=== PATIENT | female | born 1935 | race Caucasian/White ===

== ENCOUNTER 2018-03-05 06:56 | Inpatient (IN) | payer MEDICARE ==
[~2018-03-05] VITALS: Ht 165.1 cm; Wt 58.8 kg
[~2018-03-05 06:56] MED LIST: AMLODIPINE PO; ASPIR 8181 MG PO; B12; BENADRYL25 M1 PO; CALCIUM W VIT D PO; CHLORTABS PO; FISH OIL 1,2001 EAC1 PO; IBANDRONATE SO150 MG PO; LEVOTHYROXINE50 MCG PO; NIACIN500 M1 PO; NORCO 7.5-3251 EACH PO; OMEPRAZOLE40 MG PO; SUCRALFATE1 GM PO; TYLENOL PO
--- OUTSIDE RECORDS SUMMARY | 2018-03-05 06:59 | XMS REPORT ---
Author Author [facility] Address Unknown Phone Unavailable Care Team Providers Care Medical Director Occupational Health Name Role Phone ELSA CERVANTES Unavailable Unavailable Payers Payer Name Policy Type Policy Number Effective Date Expiration Date Problems This patient has no known problems. Allergies, Adverse Reactions, Alerts Allergy Name Allergy Type Status Severity Reaction(s) Onset Date Inactive Date Treating Clinician Comments Penicillins DA Active 2013-09-25 00:00:00 Fiwuapl-Hsj-Rso Reductase Inhibitor DA Active 2013-09-25 00:00:00 Medications This patient has no known medications. Results Test Description Test Time Test Comments Text Results Atomic Results Result Comments MRI BRAIN WO 2017-11-23 13:04:00 [facility] [address] [address] Patient Name: GERARDO MACIAS MR #: [id number] : 1935 Age/Sex: 82/F Req #: [id number] Adm Physician: ELSA CERVANTES MD Ordered by: RAJIV CORNELL M.D. Report #: [id number] Location: MED/SURG3 Room/Bed: [facility] Procedure: [id number] MRI/MRI BRAIN WO Exam Date: Exam Time: REPORT STATUS: Signed EXAMINATION: MRI of the brain without contrast. HISTORY: Weakness, acute stroke, shortness of breath COMPARISON: Head CT on 11/21/2017 TECHNIQUE: Sagittal T2; axial DWI, T2, FLAIR, T1-IR, T2 gradient echo; coronal FLAIR. IMAGE QUALITY: Motion artifact limits evaluation of the sagittal T2. FINDINGS: Parenchyma: 1. Acute cortical infarct in the right superior parietal lobule along the right MCA distribution. 2. Chronic right lateral occipital cortical infarct in a watershed cortical distribution in between the MCA and TRAINING AND DEVELOPMENT PROFESSIONAL. 3. Moderate confluent periventricular and xiong radiata white matter T2 hyperintense foci, most likely nonspecific chronic microvascular ischemic changes. 4. No mass, hemorrhage, acute or chronic infarcts. Skull: Unremarkable. Vessels: Expected flow voids present in the major arteries and dural sinuses. Extra-axial spaces: No abnormal signal intensity or mass effect. Brain volume: Within normal limits for age. Ventricles: No hydrocephalus or displacement. Foramen magnum: Unremarkable. Sella: Unremarkable. Paranasal / mastoid sinuses: No significant inflammatory disease. IMPRESSION: 1. Acute ischemic cortical infarct in the right parietal lobe. 2. Chronic right occipital cortical infarct. 3. Moderate chronic microvascular ischemic changes. Signed by: Dr. Kashif Rios M.D. on 11/23/2017 1:09 PM Dictated By: KASHIF RIOS MD 130 Transcribed By: HODA on 11/23/17 1308 COPY TO: RAJIV CORNELL M.D. MODIFIED BA. SWALLOW 2017-11-22 12:24:00 [address] [address] Patient Name: GERARDO MACIAS MR #: [id number] : 1935 Age/Sex: 82/F Req #: [id number] Adm Physician: ELSA CERVANTES MD Ordered by: ANNETTE MCNEIL MD Report #: [id number] Location: MED/SURG3 Room/Bed: 297-1 Procedure: DX/MODIFIED BA. SWALLOW Exam Date: 11/22/17 Exam Time: 1000 REPORT STATUS: Signed PROCEDURE: X-RAY MODIFIED BARIUM SWALLOW COMPARISON: None. INDICATIONS: Not provided. DISCUSSION: Fluoroscopic examination was performed in conjunction with speech pathology, during swallowing of a variety of thin and thick liquid consistencies. CONCLUSION: Laryngeal penetration was noted with thin liquids. No meredith aspiration.. Please see the report from speech pathology for complete details. Dictated by: Milagros Woodard M.D. on 11/22/2017 at 12:24 Electronically approved by: Milagros Woodard M.D. on 11/22/2017 at 12:24 Dictated By: MILAGROS WOODARD MD 1224 Transcribed By: LISBETH on 11/22/17 1224 COPY TO: ANNETTE MCNEIL MD CTA NECK 2017-11-22 00:52:00 [address] [address] Patient Name: GERARDO MACIAS MR #: [id number] : 1935 Age/Sex: 82/F Req #: [id number] Adm Physician: ELSA CERVANTES MD Ordered by: LEXX MYERS MODELING AND SIMULATION ANALYST Report #: [id number] Location: MED/SURG3 Room/Bed: 297-1 Procedure: [id number] CT/CTA NECK Exam Date: 11/21/17 Exam Time: 2330 REPORT STATUS: Signed ADDENDUM #1 Volume rendered 3-D images were also provided for interpretation. Signed by: Dr. Milagros Rodriguez M.D. on 12/13/2017 4:58 PM ORIGINAL REPORT Exams: Neck and head CTA is without IV contrast History: Ischemic eye disease Comparison studies:None Technique: Precontrast images were obtained through the vertex through the skull base. Axial images were then obtained from the thoracic inlet to the vertex following the administration of IV contrast. Multiplanar reformatted images were graded from the axial data. Intravenous contrast: 100 cc of Omnipaque 300. Findings: Head CT: Scalp: No abnormalities. Bones: No fractures, blastic or lytic lesions. Brain sulci: Appropriate for age. Ventricles: Mild compensatory dilatation. No hydrocephalus. Extra-axial spaces: No masses, no fluid collection. Parenchyma: Age indeterminate nonhemorrhagic cortical vascular insult centered along the right postcentral gyrus in the right parietal lobe in the distal right MCA territory. Chronic right parieto-occipital insult with encephalomalacia and gliosis in the right TRAINING AND DEVELOPMENT PROFESSIONAL-MCA cortical border zone. Scattered and mildly confluent hypodensities throughout the supratentorial white matter are nonspecific but most compatible with chronic microvascular ischemic changes. Few scattered leptomeningeal and juxtacortical catheter gauge and without mass effect or edema may be sequela previous infection/inflammation. Sellar/suprasellar region: No abnormalities. Craniocervical junction: Patent foramen magnum. No Chiari one malformation. Incidental findings: Bilateral intraocular lens replacements. Atherosclerotic calcifications in the carotid siphons.. Cervical CTA: Aortic arch: Moderate scattered hard and calcified plaque. Left subclavian artery. Severe atherosclerosis with scattered hard plaque which result in drain degrees of mild to moderate multisegmental stenosis. Right brachiocephalic trunk: Severe atherosclerosis with scattered hard and soft plaque which result in severe stenosis just just beyond the origin. Right subclavian artery: Severe atherosclerosis with severe stenosis at the origin and mild multisegmental stenosis distally. Right carotid artery: Severe flow-limiting stenosis at the right common carotid artery origin due to calcified and hard plaque. Moderate scattered soft plaque and scattered hard plaque throughout the asymmetrically narrowed right common carotid artery. Moderate calcified and soft plaque at the bifurcation and carotid bulb with mild stenosis at the right carotid bulb due to hard plaque. Right internal carotid artery is poorly opacified distal to the carotid bulb and is severely narrowed/near totally occluded with "string sign" in its distal segment. Left carotid artery: Calcified plaque at the origin and scattered throughout the common carotid artery without significant stenosis. Calcified plaque and mild soft plaque at the carotid bulb without significant stenosis. Mild scattered nonstenotic calcified plaque in the proximal left ICA which is otherwise patent distally to the skull base. Vertebral arteries: Calcified plaque at the origins bilaterally without significant stenosis on the left and mild to moderate stenosis at the right vertebral artery origin. Calcified plaque in the V1 segments result in mild stenosis bilaterally. Intracranial CTA: Right internal carotid artery: Occluded from the skull base to the right paraophthalmic segment with reconstituted flow in the distal right paraophthalmic segment. Scattered calcified atherosclerosis throughout the right cavernous and paraophthalmic segments. There is a central filling defect consistent with thrombus which extends from the right paraophthalmic, into the right supraclinoid ICA segment and into the right M1 MCA. A 3 mm superiorly projecting hyperdensity in the right paraophthalmic ICA segment may represent small aneurysm. Left internal carotid artery: Patent with mild nonstenotic calcified plaque in the cavernous and paraophthalmic segment. Middle cerebral arteries: Patent bilateral M1 and proximal M2 segments. Central filling defect within the right M1 MCA consistent with nonocclusive thrombus. Anterior cerebral arteries: Patent, no abnormalities in the A1 and A2 segment s. Vertebral arteries: Patent, no abnormalities. Basilar artery: Patent, no abnormalities. Posterior cerebral arteries: Patent, no abnormalities. Anatomical variants: Acom: Patent. Pcoms: Patent bilaterally. Vertebral arteries: Codominant. Additional findings: * Small bilateral pleural effusions. Nonspecific left upper lobe groundglass density may be infectious or neoplastic in etiology. There is a 1.2 cm subpleural nodular scarring at the left lung apex and 4 mm nodule at the right lung apex. Follow-up chest CT is recommended. * Minimal retrolisthesis of C4 on C5. Multilevel degenerative changes in the cervical spine with multilevel disc degeneration, at least mild canal stenosis at C5-C6 and C6-C7 due to disc osteophyte complexes and varying degrees of multilevel moderate to severe foraminal stenosis due to uncovertebral and facet arthrosis. * Chronic- appearing superior T4 endplate compression fracture, approximately 20% height loss. No retropulsion. IMPRESSION: Head CT: 1. Age-indeterminate nonhemorrhagic right parietal ischemic insult along the right postcentral gyrus. 2. Chronic right parieto-occipital insult. 3. Moderate chronic microvascular ischemic changes. 4. Mild generalized volume loss. Cervical CTA: 1. Severe atherosclerosis with calcified plaques as described. 2. Severe flow-limiting stenosis at the origin of the right common carotid artery which is diffusely narrowed. Severe narrowing/near total occlusion of the the distal right internal carotid artery which is occluded at the skull base. Reconstituted flow within the right paraophthalmic ICA which contains thrombus which extends into the right M1 MCA segment. 3. Patent left carotid artery. No (0%) stenosis at the left cervical carotid bulb. 4. Patent vertebral arteries with mild/moderate stenosis at the right vertebral artery origin. 5. Severe stenosis in the right brachiocephalic trunk, right subclav krzysztof artery origin and moderate stenosis in the left subclavian artery. 6. Additional findings as described. Intracranial CTA: 1. 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 2. 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 3. Nonstenotic calcified atherosclerosis in the left carotid siphon. Findings discussed with Vita Faust RN at 1:11 AM on 11/22/2017. Signed by: Dr. Milagros Rodriguez M.D. on 11/22/2017 1:50 AM Dictated By: MILAGROS RODRIGUEZ MD [id number] Transcribed By: HODA on 11/22/17 0150 COPY TO: LEXX MYERS NP CTA BRAIN 2017-11-22 00:52:00 [address] [address] Patient Name: GERARDO MACIAS MR #: [id number] : 1935 Age/Sex: 82/F [id number] Req #: [id number] Adm Physician: ELSA CERVANTES MD Ordered by: LEXX MYERS NP Report #: [id number] [facility]: [facility] Room/Bed: [facility] Procedure: [id number] CT/CTA BRAIN Exam Date: 11/21/17 Exam Time: 2330 REPORT STATUS: Signed ADDENDUM #1 Volume rendered 3-D images were also provided for interpretation. Signed by: Dr. Milagros Rodriguez M.D. on 12/13/2017 4:58 PM ORIGINAL REPORT Exams: Neck and head CTA is without IV contrast History: Ischemic eye disease Comparison studies:None Technique: Precontrast images were obtained through the vertex through the skull base. Axial images were then obtained from the thoracic inlet to the vertex following the administration of IV contrast. Multiplanar reformatted images were graded from the axial data. Intravenous contrast: 100 cc of Omnipaque 300. Findings: Head CT: Scalp: No abnormalities. Bones: No fractures, blastic or lytic lesions. Brain sulci: Appropriate for age. Ventricles: Mild compensatory dilatation. No hydrocephalus. Extra-axial spaces: No masses, no fluid collection. Parenchyma: Age indeterminate nonhemorrhagic cortical vascular insult centered along the right postcentral gyrus in the right parietal lobe in the distal right MCA territory. Chronic right parieto-occipital insult with encephalomalacia and gliosis in the right TRAINING AND DEVELOPMENT PROFESSIONAL-MCA cortical border zone. Scattered and mildly confluent hypodensities throughout the supratentorial white matter are nonspecific but most compatible with chronic microvascular ischemic changes. Few scattered leptomeningeal and juxtacortical catheter gauge and without mass effect or edema may be sequela previous infection/inflammation. Sellar/suprasellar region: No abnormalities. Craniocervical junction: Patent foramen magnum. No Chiari one malformation. Incidental findings: Bilateral intraocular lens replacements. Atherosclerotic calcifications in the carotid siphons.. Cervical CTA: Aortic arch: Moderate scattered hard and calcified plaque. Left subclavian artery. Severe atherosclerosis with scattered hard plaque which result in drain degrees of mild to moderate multisegmental stenosis. Right brachiocephalic trunk: Severe atherosclerosis with scattered hard and soft plaque which result in severe stenosis just just beyond the origin. Right subclavian artery: Severe atherosclerosis with severe stenosis at the origin and mild multisegmental stenosis distally. Right carotid artery: Severe flow-limiting stenosis at the right common carotid artery origin due to calcified and hard plaque. Moderate scattered soft plaque and scattered hard plaque throughout the asymmetrically narrowed right common carotid artery. Moderate calcified and soft plaque at the bifurcation and carotid bulb with mild stenosis at the right carotid bulb due to hard plaque. Right internal carotid artery is poorly opacified distal to the carotid bulb and is severely narrowed/near totally occluded with "string sign" in its distal segment. Left carotid artery: Calcified plaque at the origin and scattered throughout the common carotid artery without significant stenosis. Calcified plaque and mild soft plaque at the carotid bulb without significant stenosis. Mild scattered nonstenotic calcified plaque in the proximal left ICA which is otherwise patent distally to the skull base. Vertebral arteries: Calcified plaque at the origins bilaterally without significant stenosis on the left and mild to moderate stenosis at the right vertebral artery origin. Calcified plaque in the V1 segments result in mild stenosis bilaterally. Intracranial CTA: Right internal carotid artery: Occluded from the skull base to the right paraophthalmic segment with reconstituted flow in the distal right paraophthalmic segment. Scattered calcified atherosclerosis throughout the right cavernous and paraophthalmic segments. There is a central filling defect consistent with thrombus which extends from the right paraophthalmic, into the right supraclinoid ICA segment and into the right M1 MCA. A 3 mm superiorly projecting hyperdensity in the right paraophthalmic ICA segment may represent small aneurysm. Left internal carotid artery: Patent with mild nonstenotic calcified plaque in the cavernous and paraophthalmic segment. Middle cerebral arteries: Patent bilateral M1 and proximal M2 segments. Central filling defect within the right M1 MCA consistent with nonocclusive thrombus. Anterior cerebral arteries: Patent, no abnormalities in the A1 and A2 segmen ts. Vertebral arteries: Patent, no abnormalities. Basilar artery: Patent, no abnormalities. Posterior cerebral arteries: Patent, no abnormalities. Anatomical variants: Acom: Patent. Pcoms: Patent bilaterally. Vertebral arteries: Codominant. Additional findings: * Small bilateral pleural effusions. Nonspecific left upper lobe groundglass density may be infectious or neoplastic in etiology. There is a 1.2 cm subpleural nodular scarring at the left lung apex and 4 mm nodule at the right lung apex. Follow-up chest CT is recommended. * Minimal retrolisthesis of C4 on C5. Multilevel degenerative changes in the cervical spine with multilevel disc degeneration, at least mild canal stenosis at C5-C6 and C6-C7 due to disc osteophyte complexes and varying degrees of multilevel moderate to severe foraminal stenosis due to uncovertebral and facet arthrosis. * Chronic- appearing superior T4 endplate compression fracture, approximately 20% height loss. No retropulsion. IMPRESSION: Head CT: 1. Age-indeterminate nonhemorrhagic right parietal ischemic insult along the right postcentral gyrus. 2. Chronic right parieto-occipital insult. 3. Moderate chronic microvascular ischemic changes. 4. Mild generalized volume loss. Cervical CTA: 1. Severe atherosclerosis with calcified plaques as described. 2. Severe flow-limiting stenosis at the origin of the right common carotid artery which is diffusely narrowed. Severe narrowing/near total occlusion of the the distal right internal carotid artery which is occluded at the skull base. Reconstituted flow within the right paraophthalmic ICA which contains thrombus which extends into the right M1 MCA segment. 3. Patent left carotid artery. No (0%) stenosis at the left cervical carotid bulb. 4. Patent vertebral arteries with mild/moderate stenosis at the right vertebral artery origin. 5. Severe stenosis in the right brachiocephalic trunk, right subcla vian artery origin and moderate stenosis in the left subclavian artery. 6. Additional findings as described. Intracranial CTA: 1. 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 2. 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 3. Nonstenotic calcified atherosclerosis in the left carotid siphon. Findings discussed with Vita Faust RN at 1:11 AM on 11/22/2017. Signed by: Dr. Milagros Rodriguez M.D. on 11/22/2017 1:50 AM Dictated By: MILAGROS RODRIGUEZ MD 1658 Transcribed By: HODA on 11/22/17 0150 COPY TO: LEXX MYERS NP CHEST SINGLE (PORTABLE) 2017-11-21 06:34:[address] [address] Patient Name: GERARDO MACIAS MR #: [id number] : 1935 Age/Sex: 82/F Req #: [id number] Adm Physician: ELSA CERVANTES MD Ordered by: LEXX MYERS MODELING AND SIMULATION ANALYST Report #: [id number] Location: [facility]/SURG3 Room/Bed: [facility] Procedure: [id number] DX/CHEST SINGLE (PORTABLE) Exam Date: 11/21/17 Exam Time: 0555 REPORT STATUS: Signed EXAM: CHEST SINGLE (PORTABLE), AP 1 view INDICATION: Pulmonary edema COMPARISON: AP view of the chest November 11, 2017 FINDINGS: LINES/TUBES: None LUNGS: Bibasilar atelectasis and edema. PLEURA: Small bilateral pleural effusions HEART AND MEDIASTINUM: Normal size and contour. BONES AND SOFT TISSUES: No acute findings. IMPRESSION: No significant interval change. Signed by: Dr. Kevyn Martin M.D. on 11/21/2017 6:35 AM Dictated By: KEVYN MARTIN MD Transcribed By: HODA on 11/21/17 0635 COPY TO: LEXX MYERS NP CT CHEST W 2017-11-19 10:51:00 [address], [place] [address] Patient Name: GERARDO MACIAS MR #: [id number] : 1935 Age/Sex: 82/F Req #: [id number] [facility] Physician: Ordered by: BELLA REYNOSO MD Report #: [id number] Location: ER Room/Bed: Procedure: [id number] CT/CT CHEST W Exam Date: Exam Time: REPORT STATUS: Signed EXAM: CT Chest WITH contrast INDICATION: Shortness of breath, evaluate for pulmonary embolism COMPARISON: Chest radiograph 11/19/2017 TECHNIQUE: Spiral CT images of the chest were performed from the lung apices through the level of the adrenal glands after the IV contrast administration. Thin section reconstructions were obtained with special concentration on the pulmonary arteries. IV CONTRAST: 100 mL of Isovue-370 ORAL CONTRAST: None COMPLICATIONS: None RADIATION DOSE: Total DLP: 389.8 mGy*cm Estimated effective dose: (DLP x 0.015 x size factor) mSv CTDIvol has been reviewed. It is below the limits set by the Radiation Protocol Committee (RPC). FINDINGS: LINES/ TUBES: None. PULMONARY ARTERIES: No filling defects are identified in the main, right or left pulmonary arteries to their segmental and subsegmental levels, to suggest pulmonary embolism. The main pulmonary artery is normal in size, measuring 2.6 cm in diameter. LUNGS AND AIRWAYS: 1.2 cm partsolid nodule in the left upper lobe on series 3, image 22 with a solid component measuring 4 mm. Diffuse bilateral interstitial edema. Subsegmental atelectasis in both lower lobes. Bilateral central peribronchial wall thickening with associated mild bronchiectasis. Tracheomegaly. PLEURA: Bilateral low-attenuation pleural effusions, small on the right and [id number] on the left. No pneumothorax. HEART AND MEDIASTINUM: The thyroid gland is normal. No mediastinal, hilar or axillary lymphadenopathy. The heart is normal in size. Trace pericardial effusion. Severe mitral annular calcification. The thoracic aorta normal in caliber and associated with moderate diffuse atherosclerotic calcifications. Severe calcifications of the proximal arch branch vessels. UPPER ABDOMEN: Unremarkable. BONES: Diffuse bone demineralization with multilevel degenerative changes of the thoracic spine. SOFT TISSUES: Unremarkable. IMPRESSION: 1. No pulmonary embolism. Normal size of the main pulmonary artery. No RV strain. 2. Diffuse bilateral interstitial edema with associated bilateral pleural effusions and subsegmental atelectasis in both lung bases. 3. Left upper lobe 1.2 cm partsolid nodule may relate to the interstitial edema but recommend follow up in 3 months to demonstrate stability. Signed by: Dr. Re Winter M.D. on 11/19/2017 11:03 AM Dictated By: RE WINTER MD 1103 Transcribed By: HODA on 11/19/17 1103 COPY TO: BELLA REYNOSO MD CHEST SINGLE (PORTABLE) 2017-11-19 09:04:00 [address] [place] [address] Patient Name: GERARDO MACIAS MR #: [id number] : 1935 Age/Sex: 82/F Req #: [id number] Adm Physician: Ordered by: BELLA REYNOSO MD Report #: [id number] Location: ER Room/Bed: Procedure: [id number] DX/CHEST SINGLE (PORTABLE) Exam Date: 11/19/17 Exam Time: 0835 REPORT STATUS: Signed EXAM: Single AP view of the chest (Portable). COMPARISON: Chest radiograph 03/20/2014 INDICATION: FINDINGS: Single portable AP view of the chest. The visualized bones and soft tissues, cardiac silhouette lungs, pleura appear unchanged. IMPRESSION: 1. Lines/tubes: None 2. Bilateral interstitial edema with associated small pleural effusions. 3. Previously noted left hilar mass is not seen on this exam. Signed by: Dr. Re Winter M.D. on 11/19/2017 9:05 AM Dictated By: RE WINTER MD 4 Transcribed By: HODA on 11/19/17904 COPY TO: BELLA REYNOSO MD
[2018-03-05 08:02] LABS: BASOPHILS # (AUTO) 0.1 (0.0-0.1); BASOPHILS % 0.5 % (0.0-1.0); EOSINOPHILS # (AUTO) 0.3 (0.0-0.4); HEMATOCRIT 38.5 % (34.2-44.1); LYMPHOCYTES # (AUTO) 7.7 (1.0-3.2); LYMPHOCYTES % 50.5 % (18.0-39.1); MEAN CORPUSCULAR HEMOGLOBIN 26.7 pg (28-32); MEAN CORPUSCULAR HGB CONC 31.2 g/dL (31-35); MEAN CORPUSCULAR VOLUME 85.7 fL (81-99); MONOCYTES # (AUTO) 1.7 (0.2-0.8); MONOCYTES % 11.1 % (4.4-11.3); NEUTROPHILS # (AUTO) 5.4 (2.1-6.9); NEUTROPHILS % 35.5 % (38.7-80.0); PLATELET COUNT 142 x10e3/uL (140-360); RED BLOOD COUNT 4.49 x10e6/uL (3.6-5.1)
[2018-03-05 08:09] LABS: CLARITY,URINE HAZY (CLEAR); COLOR,URINE YELLOW (YELLOW); LEUKOCYTE ESTERASE ,URINE 2+ (NEGATIVE); NITRITE,URINE NEGATIVE (NEGATIVE); PROTEIN,URINE DIPSTICK NEGATIVE (NEGATIVE)
[2018-03-05 08:10] LABS: BACTERIA,URINE FEW /HPF; BILIRUBIN,URINE NEGATIVE (NEGATIVE); EPITHELIAL CELLS,URINE FEW /LPF; KETONES,URINE NEGATIVE (NEGATIVE); URINE UROBILINOGEN 0.2 mg/dL (0.2 - 1)
[2018-03-05 08:12] LABS: INR 0.91; PROTHROMBIN TIME 13.1 seconds (11.9-14.5)
[2018-03-05 08:13] LABS: PARTIAL THROMBOPLASTIN TIME 28.5 seconds (23.8-35.5)
[2018-03-05 08:20] LABS: ALANINE AMINOTRANSFERASE 11 IU/L (0-55); ALBUMIN 3.8 g/dL (3.5-5.0); ALBUMIN/GLOBULIN RATIO 1.3 (0.8-2.0); ALKALINE PHOSPHATASE 58 IU/L (40-150); ANION GAP 14.3 mmol/L (8-16); BLOOD UREA NITROGEN 16 mg/dL (7-26); BUN/CREATININE RATIO 22 (6-25); CALCIUM 9.5 mg/dL (8.4-10.2); CARBON DIOXIDE 27 mmol/L (22-29); CHLORIDE 101 mmol/L (98-107); CREATINE KINASE 31 IU/L (29-168); CREATININE, SERUM 0.73 mg/dL (0.57-1.11); EST GLOMERULAR FILTRATION RATE > 60 ML/MIN (60-); GLUCOSE 116 mg/dL (74-118); POTASSIUM 4.3 mmol/L (3.5-5.1); SODIUM 138 mmol/L (136-145)
[2018-03-05] MEDS ORDERED: SODIUM CHLORIDE 0.9% 1000ML 1,000 ML IV STA ×2 (08:49→10:34)
--- NOTE | 2018-03-05 08:50 | Diagnostic Imaging Report ---
EXAMINATION: CHEST SINGLE (PORTABLE) INDICATION: ^WEAK LEGS ^[id number] ^[id number] COMPARISON: 11/19/2017 FINDINGS: AP view Patient's chin obscures right apex. TUBES and LINES: None. LUNGS: Lungs are well inflated. Mild vascular congestion and interstitial edema. PLEURA: No visible pneumothorax. Small right pleural effusion. HEART AND MEDIASTINUM: The cardiomediastinal silhouette is unremarkable. Aorta is calcified and mildly tortuous. BONES AND SOFT TISSUES: No acute osseous lesion. Soft tissues are unremarkable. UPPER ABDOMEN: No free air under the diaphragm. IMPRESSION: Small right pleural effusion and mild interstitial edema. Signed by: Dr. José Miguel Vides MD on 03/05/2018 8:46 AM
--- NOTE | 2018-03-05 09:05 | Diagnostic Imaging Report ---
Exam: Head CT without contrast Indication: Generalized weakness, neck pain Comparison studies: Brain MRI 11/23/2017. Head and neck CTA 11/21/2017. Technique: Axial images were obtained from the skull base to the vertex. Coronal and sagittal images reconstructed from the axial data. Dose modulation, iterative reconstruction, and/or weight based adjustment of the mA/kV was utilized to reduce the radiation dose to as low as reasonably achievable. Intravenous contrast: None Findings: Scalp/skull: No abnormalities. Extra-axial spaces: No masses. No fluid collections. Brain sulci: Mildly prominent. Ventricles: Mild compensatory dilatation. No hydrocephalus. Parenchyma: Evolution of a right superior parietal lobule vascular insult, now chronic, which likely represents an external border zone phenomenon. Additional chronic vascular insult centered in the cuneus of the right occipital lobe. Confluent nonspecific hypodensity within the deep white matter. No hemorrhage or mass effect. Sellar/suprasellar region: No abnormalities. Craniocervical junction: Patent foramen magnum. No Chiari one malformation. Incidental findings: Atherosclerotic calcifications in the carotid siphons . Bilateral cataracts. Impression: 1. No acute abnormalities. 2. Evolution of a now chronic right parietal vascular insult. Chronic findings: Mild generalized volume loss. Moderate supratentorial white matter small vessel ischemic changes. Chronic vascular insult in the right lateral occipital lobe. A preliminary report was provided by Dr. Vega on 03/05/2018 9:05 AM. Signed by: Dr. Agustin Pradhan M.D. on 03/06/2018 5:14 PM
[2018-03-05] MEDS ORDERED: CLINDAMYCIN PHOS 900MG/ 50ML 50 ML IV ONE (09:30)
[2018-03-05] MEDS ORDERED: ONDANSETRON HCL INJ 2 MG/ML VIAL IV PRN (09:45)
[2018-03-05 10:48] LABS: BAND NEUTROPHILS % (MANUAL) 1 %; EOSINOPHILS % (MANUAL) 4 % (0-7); LYMPHOCYTES % (MANUAL) 46 % (19-48); MONOCYTES % (MANUAL) 2 % (3.4-9.0); NEUTROPHILS % (MANUAL) 46 % (40-74)
[2018-03-05 10:49] LABS: PLATELET ESTIMATE ADEQUATE; PLATELET MORPHOLOGY COMMENT NORMAL; RBC MORPHOLOGY COMMENT NORMAL
[2018-03-05] MEDS: CEFTRIAXONE SOD 1 GM VIAL IV SCH (12:00)
[2018-03-05] MEDS ORDERED: HYDROCODONE/APAP 5MG-325MG TAB PO ONE (12:00)
--- NOTE | 2018-03-05 12:30 | Diagnostic Imaging Report ---
EXAM: CT Chest WITH contrast 03/05/2018 11:01 AM INDICATION: ^PE PROTOCOL ^Y COMPARISON: Same the chest x-ray, chest CT dated 11/19/2017 TECHNIQUE: Chest was scanned utilizing a multidetector helical scanner from the lung apex through the level of the diaphragm after administration of IV contrast. Thin section reconstructions were obtained with special concentration on the pulmonary arteries. Coronal and sagittal reformations were obtained. Dose modulation, iterative reconstruction, and/or weight based adjustment of the mA/kV was utilized to reduce the radiation dose to as low as reasonably achievable. Pulmonary embolism protocol was performed. IV CONTRAST: 100 mL of Isovue 370 COMPLICATIONS: None RADIATION DOSE: Total DLP: 469.57 mGy*cm Estimated effective dose: (DLP x 0.014 x size factor) mSv CTDIvol has been reviewed. It is below the limits set by the Radiation Protocol Committee (RPC). FINDINGS: LINES/ TUBES: None. LUNGS AND AIRWAYS: No evidence of pulmonary embolism. Pulmonary vascular congestion and mild interstitial edema. 4 mm left upper lobe nodule (series 3, image 26). 6 mm cavitary left upper lobe nodule (series 3, image 35). Right upper lobe 6 mm nodules (3/38 and 56). 5 mm right upper lobe nodule (3/46). Unchanged 1.2 cm left apical consolidation (series 3, image 18). Airways are normal. PLEURA: Small bilateral pleural effusions. HEART AND MEDIASTINUM: The thyroid gland is normal. No mediastinal or hilar lymphadenopathy. Prominent bilateral axillary/subpectoralis lymph nodes. The heart is mildly enlarged. There is no pericardial effusion. Severe atherosclerotic calcification of aorta and coronary arteries. There are also aortic and mitral valve calcifications. UPPER ABDOMEN: Unremarkable. BONES: Generalized demineralization limits evaluation. There are degenerative changes in the thoracic spine. SOFT TISSUES: Unremarkable. IMPRESSION: 1. No evidence of pulmonary embolism. 2. Pulmonary vascular congestion, mild interstitial edema, and small bilateral pleural effusions. 3. Multiple bilateral lung nodules, stable when compared to prior CT. Recommend follow-up in 6-12 months to ensure stability. 4. Previously noted partsolid nodule within left upper lobe has been replaced by a 6 mm cavitary nodule. 5. Severe atherosclerotic calcification of aorta and coronary arteries. Signed by: Dr. José Miguel Vides MD on 03/05/2018 12:27 PM
[2018-03-05] MEDS ORDERED: LORAZEPAM INJ 2 MG/ML VIAL IV ONE (13:30)
[2018-03-05 13:56] LABS: ABG HCO3 28 mmol/L (23-28); ABG PCO2 48 mmHg (41-51); ABG PH 7.37 (7.31-7.41); ABG PO2 174 mmHg (80-105)
[2018-03-05] MEDS ORDERED: METHYLPREDNISOLONE SOD SUCC 40 MG/ML VIAL IV ONE (14:30)
[2018-03-05 15:40] VITALS: BP_SYST 107; BP_SYST 145; BP_DIAS 45; BP_DIAS 93
[2018-03-05 15:57] VITALS: BP 107/72
[2018-03-05] MEDS ORDERED: MELATONIN10 M1 PO (16:00)
[2018-03-05] MEDS ORDERED: MAGNESIUM400 MG (16:00)
[2018-03-05] MEDS ORDERED: PLAVIX75 MG PO (16:00)
[2018-03-05] MEDS ORDERED: ALBUTEROL0.63 MG/3 (16:00)
[2018-03-05] MEDS: SODIUM CHLORIDE 0.9% 1000ML 1,000 ML IV SCH ×2 (16:41→19:44)
[2018-03-05] MEDS: CLINDAMYCIN PHOS 900MG/ 50ML 50 ML IV SCH (16:43)
[2018-03-05] MEDS ORDERED: IOPAMIDOL 370 MG/ML 200 ML INFUS..BTL INJ ONE (18:51)
[2018-03-05] MEDS ORDERED: SODIUM CHLORIDE 0.9% 50ML 50 ML ONE (18:51)
--- NOTE | 2018-03-05 19:17 | Consultation ---
DATE OF CONSULTATION: PULMONARY/CRITICAL CARE CONSULTATION CHIEF COMPLAINT: Recurrent dyspnea. HISTORY OF PRESENT ILLNESS: Patient is an 82-year-old woman. She required hospitalization at [facility] in August or September and again at [facility] in November of this year. At both times, she had difficulty breathing. A CT scan at that time showed nonspecific interstitial pneumonitis and a modified barium swallow showed recurrent aspiration. She subsequently received antibiotics. She has been going to outpatient speech therapy. She also uses some bronchodilators at home. She was previously evaluated by Dr. Hsieh of cardiology. She had an echocardiogram that showed good left ventricular function, but possible diastolic dysfunction. She also had an abnormal blockage of her carotid artery and required carotid endarterectomy done at [facility] 2 months ago. She came to the emergency department this morning complaining of worsening dyspnea. She did not complain of fevers. She did not complain of cough. She denied any chest pain. PAST SURGICAL HISTORY 1. Recent carotid artery surgery. 2. Status post hysterectomy. PAST MEDICAL HISTORY 1. Recurrent aspiration pneumonitis. 2. Nonspecific interstitial pneumonitis. SOCIAL HISTORY: The patient is a former smoker. She does not use alcohol. ALLERGIES: THE PATIENT IS ALLERGIC TO PENICILLINS AND STATIN. FAMILY HISTORY: NONCONTRIBUTORY. REVIEW OF SYSTEMS: There is no history of fevers. She has no headache or neck pain. She is not complaining of any throat pain. She has no chest pain. She does have worsening dyspnea. She does not have any cough. She has no abdominal pain. She has no nausea or vomiting. She has no leg edema. PHYSICAL EXAMINATION VITAL SIGNS: The patient is afebrile. The blood pressure is 132/84 and saturation is 100%. The pulse is 100 to 113 and the respiratory rate is 24. She is currently on a BiPAP. HEENT: Shows no facial swelling or erythema. The oropharynx is normal. LYMPHATIC: Shows no submandibular, cervical, or supraclavicular adenopathy. CARDIAC: Reveals regular rate and rhythm with a normal S1 and S2. LUNGS: Auscultation of the lungs reveals a few crackles at the lung bases. ABDOMEN: Soft, nontender. There is no rebound or guarding. EXTREMITIES: Show no leg edema or calf tenderness. There is no cyanosis or clubbing. SKIN: Shows no rashes. NEUROLOGIC: Shows no focal abnormalities. LABORATORY DATA: White blood cell count is 15.3 and hemoglobin is 12. The platelet count is 1.2. BUN to creatinine ratio is normal. The other electrolytes are within normal limits. The BNP is 411. Blood gas shows a pH of 7.37, CO2 of 48, O2 of 174, and bicarbonate of 28. RADIOGRAPHIC DATA: Chest CT shows no evidence of PE. There is some mild interstitial edema and mild bilateral pleural effusions. She has some small pulmonary nodules, which are small and unchanged as compared to prior studies. IMPRESSION 1. Hgnrd-jo-pnbdzcy respiratory failure. 2. Recurrent aspiration pneumonitis. 3. Lkwrh-ch-nokschm diastolic heart failure. 4. Combined respiratory acidosis and metabolic alkalosis. 5. Urinary tract infection. PLAN 1. Continue BiPAP as needed. 2. Gentle diuresis. 3. Aspiration precautions. 4. Antibiotics. 5. Physical therapy. 6. Nutritional evaluation. Job#: [id number] RTY
[2018-03-05 19:57] LABS: CREATINE KINASE MB 1.2 ng/mL (0-5.0)
[2018-03-05 20:12] VITALS: BP 158/90
[2018-03-05] MEDS ORDERED: ALPRAZOLAM 0.5 MG TAB PO PRN (21:15)
[2018-03-05] MEDS: ALPRAZOLAM 0.5 MG TAB PO PRN (21:15)
[2018-03-05 21:17] VITALS: BP 158/90
[2018-03-05] MEDS ORDERED: ALPRAZOLAM 0.25 MG TAB ONE (21:20)
[2018-03-06] VITALS (13 sets, daily range): BP systolic 80–137; BP diastolic 35–94
[2018-03-06] MEDS: CLINDAMYCIN PHOS 900MG/ 50ML 50 ML IV SCH ×3 (01:31→18:33)
[2018-03-06 05:11] LABS: BASOPHILS # (AUTO) 0.1 (0.0-0.1); BASOPHILS % 0.4 % (0.0-1.0); EOSINOPHILS % 0.2 % (0.0-6.0); HEMATOCRIT 39.3 % (34.2-44.1); HEMOGLOBIN 11.9 g/dL (12.0-16.0); LYMPHOCYTES # (AUTO) 7.8 (1.0-3.2); LYMPHOCYTES % 45.8 % (18.0-39.1); MEAN CORPUSCULAR HEMOGLOBIN 26.1 pg (28-32); MEAN CORPUSCULAR HGB CONC 30.3 g/dL (31-35); MEAN CORPUSCULAR VOLUME 86.2 fL (81-99); MONOCYTES # (AUTO) 0.9 (0.2-0.8); MONOCYTES % 5.4 % (4.4-11.3); NEUTROPHILS # (AUTO) 8.2 (2.1-6.9); NEUTROPHILS % 47.7 % (38.7-80.0); PLATELET COUNT 138 x10e3/uL (140-360); RED BLOOD COUNT 4.56 x10e6/uL (3.6-5.1); RED CELL DISTRIBUTION WIDTH 17.2 % (11.7-14.4)
[2018-03-06 05:42] LABS: CREATINE KINASE MB 1.6 ng/mL (0-5.0)
[2018-03-06] MEDS: SODIUM CHLORIDE 0.9% 1000ML 1,000 ML IV SCH (05:44)
[2018-03-06] MEDS: LEVOTHYROXINE SODIUM 50 MCG TAB PO SCH (05:57)
[2018-03-06] MEDS: ALPRAZOLAM 0.5 MG TAB PO PRN ×2 (06:02→18:31)
[2018-03-06 06:03] LABS: ANION GAP 13.5 mmol/L (8-16); BLOOD UREA NITROGEN 13 mg/dL (7-26); BUN/CREATININE RATIO 18 (6-25); CALCIUM 8.5 mg/dL (8.4-10.2); CARBON DIOXIDE 29 mmol/L (22-29); CHLORIDE 100 mmol/L (98-107); CREATININE, SERUM 0.74 mg/dL (0.57-1.11); EST GLOMERULAR FILTRATION RATE > 60 ML/MIN (60-); GLUCOSE 102 mg/dL (74-118); POTASSIUM 4.5 mmol/L (3.5-5.1); SODIUM 138 mmol/L (136-145)
--- NOTE | 2018-03-06 06:24 | Diagnostic Imaging Report ---
EXAMINATION: CHEST SINGLE (PORTABLE) INDICATION: Possible aspiration COMPARISON: Chest CT and radiograph 03/05/2018 FINDINGS: AP view TUBES and LINES: None. LUNGS/PLEURA: Stable small bilateral pleural effusions and mild interstitial edema. HEART AND MEDIASTINUM: Stable. BONES AND SOFT TISSUES: No acute osseous lesion. Soft tissues are unremarkable. UPPER ABDOMEN: No free air under the diaphragm. IMPRESSION: Small bilateral pleural effusions and mild interstitial edema. Signed by: DR. Yousuf Elder MD on 03/06/2018 6:20 AM
[2018-03-06] MEDS: FATTY ACIDS PO SCH (09:00)
[2018-03-06] MEDS: FISH OIL PO SCH (09:00)
[2018-03-06] MEDS: OMEGA PO SCH (09:00)
[2018-03-06] MEDS: PANTOPRAZOLE SOD 40 MG TABEC PO SCH (11:28)
[2018-03-06] MEDS: ASPIRIN 81 MG CHEW TAB PO SCH (11:28)
[2018-03-06] MEDS: CEFTRIAXONE SOD 1 GM VIAL IV SCH (11:46)
[2018-03-06] MEDS: CLOPIDOGREL BISULFATE 75 MG TAB PO SCH (12:50)
[2018-03-06] MEDS: AZITHROMYCIN 500MG/NS 250 ML 250 ML IV SCH (12:51)
--- NOTE | 2018-03-06 14:38 | History and Physical ---
PRIMARY CARE PHYSICIAN: Dr. Prince EXPERIMENTAL OUTBOARD MOTORS MECHANIC: Dr. Elkin Jaime SCREW MACHINE REPAIRER: Dr. Abdelrahman Jaime CHIEF COMPLAINT: Shortness of breath and fall. HISTORY OF PRESENT ILLNESS: An 82-year-old woman was admitted in December with pneumonia, and now developing shortness of breath. states that the patient had difficulty in getting to the bathroom and was short of breath. Subsequently, fell. He helped her off the floor and laid her down and went to sleep again. The patient was fallen between the bed and the bathroom. He brought her to the hospital for further evaluation and management. The patient states that she has been feeling weak and getting worsening deconditioning. PAST MEDICAL HISTORY: Pneumonia, pleural effusion, pulmonary edema, physical deconditioning, E. 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 PAST SURGICAL HISTORY: Hysterectomy. ALLERGIES: PER ELECTRONIC MEDICAL RECORD. FAMILY HISTORY/SOCIAL HISTORY: Patient is . No alcohol, illicit or cigarettes. She previously smoked cigarettes. MEDICATIONS: Per electronic medical record. REVIEW OF SYSTEMS: Denies any dizziness or chest pain. Denies any fever, chills, sweats, nausea, vomiting, diarrhea, headache, back pain. PHYSICAL EXAMINATION VITAL SIGNS: Reviewed. GENERAL: A tired-appearing woman resting in bed. HEENT: Anicteric. CARDIOVASCULAR: Normal S1 and S2. She has a 3/6 systolic murmurs. LUNGS: She has coarse breath sounds. ABDOMEN: Soft, nontender and nondistended. EXTREMITIES: No edema or calf tenderness. NEUROLOGICAL: Alert and appropriate. She moves all extremities. Her upper extremities are 5/5 motor strength. Lower extremities 4/5 motor strength bilaterally. SKIN: Dry. PSYCHIATRIC: Flat affect. LABS: Reviewed. MEDICATIONS: Reviewed. ASSESSMENT: This is an 82-year-old woman with: 1. Twpzx-cl-zrhhyfk respiratory failure. 2. Pleural effusion bilaterally. 3. Acute pulmonary edema. 4. Pulmonary nodules bilaterally. 5. Cavitary lung nodule in left lung. 6. Aspiration pneumonitis. 7. Urinary tract infection. 8. Severe sepsis with hypotension. 9. Hypothyroidism. 10. Anxiety disorder. 11. Physical deconditioning. 12. Fall. PLAN 1. She received BiPAP initially, but refused BiPAP overnight. 2. Will continue antibiotic regimen consisting of Azithromycin and ceftriaxone and clindamycin. 3. Will use nectar thickened fluids to reduce risk of aspiration. 4. Physical therapy consultation. 5. for anxiety. 6. Synthroid for hypothyroidism. 7. Antibiotics for urinary tract infection. Follow up cultures. 8. The patient has a cavitary lung nodule at the old site of a lung nodule, likely progression of the disease. Will defer to Dr. Jaime, pulmonary service. 9. Will use Lovenox for prophylaxis and Protonix. 10. Disposition. Skilled facility evaluation. Physical therapy and antibiotics. Follow up cultures. Discussed the case with the patient and at bedside. Job#: [id number] ASMITA
--- NOTE | 2018-03-06 17:16 | Diagnostic Imaging Report ---
EXAMINATION: Head CT HISTORY: Right-sided weakness for the last 2 days COMPARISON: Brain MRI 11/23/[address] on 03/05/2018 TECHNIQUE: Multidetector axial images were obtained without contrast from the foramen magnum to the vertex . The images were reconstructed using brain and bone algorithms. Thin section brain images were reformatted into coronal and sagittal planes. Image quality: Motion/streaking artifact limits the evaluation of the skull base and posterior cranial fossa. Dose modulation, iterative reconstruction, and/or weight based adjustment of the mA/kV was utilized to reduce the radiation dose to as low as reasonably achievable. FINDINGS: Parenchyma: 1. Chronic cortical infarct in the right superior parietal lobule along the right MCA distribution (acute on MRI dated 11/23/2017). 2. Chronic right lateral occipital cortical infarct in a watershed cortical distribution in between the MCA and PATTERN FITTER. 3. Moderate confluent periventricular and xiong radiata nonspecific chronic microvascular ischemic changes. 4. No mass, hemorrhage, or CT evidence of acute territorial cortical infarct. Extra-axial spaces:No abnormal density. No extra-axial fluid collections Brain volume: Normal for age. Ventricles: No hydrocephalus or displacement. Arteries: No density suggestive of thrombus. Dural sinuses: No abnormal density. Extra-axial spaces: No abnormal density. Foramen magnum: No mass, Chiari malformation, or basilar invagination. Sella: Mildly enlarged, partially empty, mostly CSF filled, unchanged. Paranasal/mastoid sinuses: Imaged portions unremarkable. Skull/Scalp: No lytic or blastic lesions. No fractures. IMPRESSION: 1. No acute intracranial hemorrhage or new cortical infarct. 2. Unchanged multiple chronic cortical infarct. 3. Moderate chronic microvascular ischemic changes. Signed by: Dr. Jade Rios M.D. on 03/06/2018 5:12 PM
[2018-03-06] MEDS ORDERED: IPRATROPIUM BROMIDE 0.02% 2.5 ML NEB NEB PRN (17:45)
[2018-03-06] MEDS: ENOXAPARIN SOD INJ 40 MG/0.4 ML SYR SC SCH (18:33)
[2018-03-06] MEDS ORDERED: NON-FORMULARY MEDICATION (Melatonin 10 MG) PO SCH (21:00)
[2018-03-06] MEDS ORDERED: FUROSEMIDE INJ 10 MG/ML 2 ML VIAL IV ONE (21:45)
--- NOTE | 2018-03-06 22:22 | Progress Note ---
DATE: March 06, 2018 This is coverage for Dr. Abdelrahman Jaime. SUBJECTIVE: Ms. Hylton was seen and examined at bedside. She had poor BiPAP tolerance. She was taken off BiPAP during the night. However, this morning she is more awake. She is less confused. 3 liters per minute of oxygen by nasal cannula. She still did not walk very well and she barely stood up as she is very weak. She did eat, but she coughed when she ate. REVIEW OF SYSTEMS: No headache, no rash. OBJECTIVE: VITAL SIGNS: Afebrile, vital signs noted per electronic record. GENERAL: No acute distress, alert and calm, thin. HEENT: Normocephalic, atraumatic. NECK: Supple. Throat midline. LUNGS: Bilateral air entry, few rhonchi. CARDIOVASCULAR: S1, S2. No murmurs, rubs, or gallops. ABDOMEN: Soft, nontender. EXTREMITIES: No clubbing, no cyanosis, there is no edema. INTEGUMENT: No rash, no purpura. LABS: 4.5 potassium, 0.7 creatinine. 17 White count. 138,000 platelets. IMPRESSIONS AND PLAN: 1. Abnormal chest radiography, treat as pneumonia. 2. Abnormal chest radiography, possible fluid overload/effusion. 3. Encephalopathy, possible stroke. 4. Hujms-vb-hqnaaom respiratory failure, slowly improved. 5. Qsokz-kb-hbgrgqn diastolic heart failure. 6. Urinary tract infection. 7. Abnormal blood culture 1 out of 2 with gram-positive cocci present. Continue weaning bilevel positive airway pressure. Repeat chest x-ray tomorrow to assess the fluid evolution. Check computerized tomography head today. Nebulizer will be given. Will give bronchodilators as needed. Deep venous thrombosis prophylaxis is on. Continue antibiotics. As kidneys tolerate, we will be doing diuretics. Patient does have history of October 2017 echocardiogram with 55% to 60% left ventricular ejection fraction, otherwise mostly unremarkable echocardiogram. There was atrial fibrillation at that time. Job#: [id number]
[2018-03-06] MEDS: MELATONIN 5 MG TABLET PO SCH (22:42)
[2018-03-07] VITALS (25 sets, daily range): BP systolic 73–159; BP diastolic 39–119
[2018-03-07] MEDS ORDERED: SODIUM CHLORIDE 0.9% 250ML 250 ML ONE (00:25)
[2018-03-07] MEDS: CLINDAMYCIN PHOS 900MG/ 50ML 50 ML IV SCH ×3 (00:38→16:07)
[2018-03-07] MEDS: ALPRAZOLAM 0.5 MG TAB PO PRN ×2 (04:02→21:34)
[2018-03-07 04:54] LABS: BASOPHILS # (AUTO) 0.1 (0.0-0.1); BASOPHILS % 0.3 % (0.0-1.0); EOSINOPHILS # (AUTO) 0.1 (0.0-0.4); EOSINOPHILS % 0.5 % (0.0-6.0); HEMATOCRIT 38.6 % (34.2-44.1); HEMOGLOBIN 11.8 g/dL (12.0-16.0); LYMPHOCYTES # (AUTO) 6.9 (1.0-3.2); LYMPHOCYTES % 32.3 % (18.0-39.1); MEAN CORPUSCULAR HEMOGLOBIN 26.1 pg (28-32); MEAN CORPUSCULAR HGB CONC 30.6 g/dL (31-35); MEAN CORPUSCULAR VOLUME 85.4 fL (81-99); MONOCYTES # (AUTO) 1.2 (0.2-0.8); MONOCYTES % 5.4 % (4.4-11.3); NEUTROPHILS # (AUTO) 13.1 (2.1-6.9); NEUTROPHILS % 60.9 % (38.7-80.0); PLATELET COUNT 162 x10e3/uL (140-360); RED BLOOD COUNT 4.52 x10e6/uL (3.6-5.1)
[2018-03-07 05:24] LABS: ALANINE AMINOTRANSFERASE 14 IU/L (0-55); ALBUMIN 3.7 g/dL (3.5-5.0); ALBUMIN/GLOBULIN RATIO 1.4 (0.8-2.0); ALKALINE PHOSPHATASE 59 IU/L (40-150); ANION GAP 14.6 mmol/L (8-16); BLOOD UREA NITROGEN 12 mg/dL (7-26); BUN/CREATININE RATIO 17 (6-25); CALCIUM 9.1 mg/dL (8.4-10.2); CARBON DIOXIDE 27 mmol/L (22-29); CHLORIDE 100 mmol/L (98-107); CREATININE, SERUM 0.72 mg/dL (0.57-1.11); EST GLOMERULAR FILTRATION RATE > 60 ML/MIN (60-); GLUCOSE 133 mg/dL (74-118); MAGNESIUM 1.9 MG/DL (1.3-2.1); PHOSPHORUS 3.6 MG/DL (2.3-4.7); POTASSIUM 3.6 mmol/L (3.5-5.1); SODIUM 138 mmol/L (136-145)
[2018-03-07] MEDS: LEVOTHYROXINE SODIUM 50 MCG TAB PO SCH (05:31)
--- NOTE | 2018-03-07 06:12 | Diagnostic Imaging Report ---
EXAM: CHEST SINGLE (PORTABLE), AP 1 view INDICATION: Congestive heart failure COMPARISON: AP view of the chest March 06, 2018 FINDINGS: LINES/TUBES: None LUNGS: Stable edema PLEURA: Stable bilateral pleural effusions HEART AND MEDIASTINUM: Stable appearance BONES AND SOFT TISSUES: No acute findings. IMPRESSION: No interval change. Signed by: Dr. Kailyn Martin M.D. on 03/07/2018 6:09 AM
[2018-03-07] MEDS: FATTY ACIDS PO SCH (08:04)
[2018-03-07] MEDS: FISH OIL PO SCH (08:04)
[2018-03-07] MEDS: OMEGA PO SCH (08:04)
[2018-03-07] MEDS: PANTOPRAZOLE SOD 40 MG TABEC PO SCH (08:09)
[2018-03-07] MEDS: CLOPIDOGREL BISULFATE 75 MG TAB PO SCH (08:09)
[2018-03-07] MEDS: ASPIRIN 81 MG CHEW TAB PO SCH (08:09)
[2018-03-07] MEDS ORDERED: SODIUM CHLORIDE 0.9% 250ML 250 ML IV ONE (08:30)
[2018-03-07 08:44] LABS: LYMPHOCYTES % (MANUAL) 21 % (19-48); MONOCYTES % (MANUAL) 6 % (3.4-9.0); NEUTROPHILS % (MANUAL) 71 % (40-74)
[2018-03-07 08:45] LABS: PLATELET ESTIMATE ADEQUATE; PLATELET MORPHOLOGY COMMENT FEW LARGE; RBC MORPHOLOGY COMMENT NORMAL
[2018-03-07] MEDS ORDERED: FUROSEMIDE INJ 10 MG/ML 2 ML VIAL IV SCH (09:00)
[2018-03-07] MEDS: CEFTRIAXONE SOD 1 GM VIAL IV SCH (11:06)
[2018-03-07] MEDS: AZITHROMYCIN 500MG/NS 250 ML 250 ML IV SCH (11:06)
--- NOTE | 2018-03-07 15:55 | Progress Note ---
DATE: PULMONARY/CRITICAL CARE PROGRESS NOTE SUBJECTIVE: Patient reports less dyspnea today. She had difficulty tolerating the BiPAP last night. She does have atrial fibrillation today. PHYSICAL EXAMINATION VITAL SIGNS: Blood pressure is 120/70. The pulse is elevated at 95 to 105 with atrial fibrillation. HEENT: No facial swelling or erythema. CARDIAC: Irregularly irregular rhythm with a normal S1 and S2. LUNGS: Auscultation of the lungs reveals a few crackles at the bases. There is no wheezing. ABDOMEN: Soft and nontender. There is no rebound or guarding. EXTREMITIES: No leg edema or calf tenderness. There is no cyanosis or clubbing. SKIN: Examination shows no rashes. RADIOGRAPHIC DATA: CT scan of the head shows chronic cortical infarct in the right parietal lobe and the right lateral occipital lobe. She also has some nonspecific changes in the periventricular areas and xiong radiata. Chest x-ray is unchanged. LABORATORY DATA: White blood cell count has increased to 21.4, and hemoglobin is 11.8. Platelet count is 162. The TWN-ed-guyvxjrbbr ratio is normal. The other electrolytes are within normal limits. IMPRESSION 1. Izyyg-nv-sclysjd respiratory failure. 2. Recurrent aspiration pneumonitis with aspiration pneumonia. 3. Atrial fibrillation. 4. Epndq-nc-ddvrywe diastolic heart failure. 5. Chronic lymphocytic leukemia. PLAN 1. Continue BiPAP at night. 2. Continue current antibiotics with the addition of aztreonam to cover for gram negatives. 3. Await culture results. 4. Continue mild diuretics and consider cardiology consultation. 5. Physical therapy and speech therapy. Job#: [id number]
[2018-03-07] MEDS ORDERED: AZTREONAM IV SCH (16:00)
[2018-03-07] MEDS ORDERED: WATER STERILE IV SCH (16:00)
[2018-03-07] MEDS: ENOXAPARIN SOD INJ 40 MG/0.4 ML SYR SC SCH (16:07)
[2018-03-07] MEDS: AZTREONAM 2 GM VIAL IV SCH ×2 (17:03→23:26)
[2018-03-07] MEDS: MELATONIN 5 MG TABLET PO SCH (21:06)
[2018-03-08] VITALS (7 sets, daily range): BP systolic 93–167; BP diastolic 40–74
[2018-03-08] MEDS ORDERED: AZTREONAM IV SCH ×2
[2018-03-08] MEDS ORDERED: WATER STERILE IV SCH ×2
[2018-03-08] MEDS: CLINDAMYCIN PHOS 900MG/ 50ML 50 ML IV SCH ×3 (00:53→16:57)
[2018-03-08 04:51] LABS: BASOPHILS # (AUTO) 0.1 (0.0-0.1); BASOPHILS % 0.4 % (0.0-1.0); EOSINOPHILS # (AUTO) 0.5 (0.0-0.4); EOSINOPHILS % 3.7 % (0.0-6.0); HEMATOCRIT 34.8 % (34.2-44.1); HEMOGLOBIN 10.6 g/dL (12.0-16.0); LYMPHOCYTES # (AUTO) 6.6 (1.0-3.2); LYMPHOCYTES % 46.8 % (18.0-39.1); MEAN CORPUSCULAR HEMOGLOBIN 26.1 pg (28-32); MEAN CORPUSCULAR HGB CONC 30.5 g/dL (31-35); MEAN CORPUSCULAR VOLUME 85.7 fL (81-99); MONOCYTES # (AUTO) 1.5 (0.2-0.8); MONOCYTES % 10.4 % (4.4-11.3); NEUTROPHILS # (AUTO) 5.5 (2.1-6.9); NEUTROPHILS % 38.5 % (38.7-80.0); PLATELET COUNT 140 x10e3/uL (140-360); RED BLOOD COUNT 4.06 x10e6/uL (3.6-5.1); RED CELL DISTRIBUTION WIDTH 17.2 % (11.7-14.4)
[2018-03-08 05:21] LABS: ALANINE AMINOTRANSFERASE 11 IU/L (0-55); ALBUMIN 3.2 g/dL (3.5-5.0); ALBUMIN/GLOBULIN RATIO 1.2 (0.8-2.0); ALKALINE PHOSPHATASE 52 IU/L (40-150); ANION GAP 11.5 mmol/L (8-16); BLOOD UREA NITROGEN 11 mg/dL (7-26); BUN/CREATININE RATIO 15 (6-25); CALCIUM 8.9 mg/dL (8.4-10.2); CARBON DIOXIDE 31 mmol/L (22-29); CHLORIDE 100 mmol/L (98-107); CREATININE, SERUM 0.75 mg/dL (0.57-1.11); EST GLOMERULAR FILTRATION RATE > 60 ML/MIN (60-); GLUCOSE 120 mg/dL (74-118); POTASSIUM 3.5 mmol/L (3.5-5.1); SODIUM 139 mmol/L (136-145)
[2018-03-08] MEDS: LEVOTHYROXINE SODIUM 50 MCG TAB PO SCH (05:36)
--- NOTE | 2018-03-08 06:37 | Diagnostic Imaging Report ---
EXAM: CHEST SINGLE (PORTABLE), AP 1 view INDICATION: Shortness of breath, weakness and confusion COMPARISON: AP view of the chest March 07, 2018 FINDINGS: LINES/TUBES: None LUNGS: Bibasilar atelectasis. PLEURA: Moderate layering bilateral pleural effusions. Pulmonary nodule seen on CT not visible by x-ray. HEART AND MEDIASTINUM: The heart is within normal size limits. Stable dominance of the upper mediastinum. BONES AND SOFT TISSUES: Dense central vascular calcifications. IMPRESSION: Enlarging bilateral pleural effusions. Signed by: Dr. Kailyn Martin M.D. on 03/08/2018 6:34 AM
[2018-03-08] MEDS: ALPRAZOLAM 0.5 MG TAB PO PRN (06:58)
[2018-03-08] MEDS: PANTOPRAZOLE SOD 40 MG TABEC PO SCH (08:00)
[2018-03-08 08:26] LABS: EOSINOPHILS % (MANUAL) 4 % (0-7); LYMPHOCYTES % (MANUAL) 47 % (19-48); MONOCYTES % (MANUAL) 3 % (3.4-9.0); NEUTROPHILS % (MANUAL) 43 % (40-74); PLATELET ESTIMATE ADEQUATE; RBC MORPHOLOGY COMMENT NORMAL
[2018-03-08 08:27] LABS: PLATELET MORPHOLOGY COMMENT NORMAL
[2018-03-08] MEDS: FUROSEMIDE INJ 10 MG/ML 2 ML VIAL IV SCH ×2 (08:30→17:37)
[2018-03-08] MEDS: FISH OIL PO SCH (09:00)
[2018-03-08] MEDS: FATTY ACIDS PO SCH (09:00)
[2018-03-08] MEDS: OMEGA PO SCH (09:00)
[2018-03-08] MEDS: ASPIRIN 81 MG CHEW TAB PO SCH (09:38)
[2018-03-08] MEDS: AZTREONAM 2 GM VIAL IV SCH ×2 (09:38→15:48)
[2018-03-08] MEDS: CLOPIDOGREL BISULFATE 75 MG TAB PO SCH (09:38)
--- NOTE | 2018-03-08 11:25 | Diagnostic Imaging Report ---
Examination: Limited thoracic ultrasound Clinical indication: Pleural effusions. Comparison examination: Chest radiograph 03/08/2018 Technique: Transverse and longitudinal sonographic images of the right and left hemithoraces were obtained. Findings: Moderate left and small right pleural effusions. Impression: Moderate left and small right pleural effusion. Signed by: Dr. Elkin Woodard M.D. on 03/08/2018 11:22 AM
[2018-03-08] MEDS: CEFTRIAXONE SOD 1 GM VIAL IV SCH (12:30)
[2018-03-08] MEDS: AZITHROMYCIN 500MG/NS 250 ML 250 ML IV SCH (12:30)
[2018-03-08] MEDS: ACETAMINOPHEN 325 MG TAB PO PRN (14:35)
[2018-03-08] MEDS: ENOXAPARIN SOD INJ 40 MG/0.4 ML SYR SC SCH (16:57)
[2018-03-08] MEDS: METOPROLOL SUCCINATE 25 MG TAB XL PO SCH (21:08)
[2018-03-08] MEDS: MELATONIN 5 MG TABLET PO SCH (21:09)
[2018-03-09] VITALS (13 sets, daily range): BP systolic 80–153; BP diastolic 46–93
[2018-03-09] MEDS: AZTREONAM 2 GM VIAL IV SCH ×3 (00:05→16:20)
[2018-03-09] MEDS: CLINDAMYCIN PHOS 900MG/ 50ML 50 ML IV SCH ×3 (00:56→17:49)
[2018-03-09 04:47] LABS: BASOPHILS # (AUTO) 0.2 (0.0-0.1); BASOPHILS % 0.7 % (0.0-1.0); EOSINOPHILS # (AUTO) 0.5 (0.0-0.4); HEMATOCRIT 37.3 % (34.2-44.1); HEMOGLOBIN 11.6 g/dL (12.0-16.0); LYMPHOCYTES # (AUTO) 10.8 (1.0-3.2); MEAN CORPUSCULAR HGB CONC 31.1 g/dL (31-35); MEAN CORPUSCULAR VOLUME 83.4 fL (81-99); MONOCYTES # (AUTO) 1.3 (0.2-0.8); MONOCYTES % 5.7 % (4.4-11.3); NEUTROPHILS # (AUTO) 9.7 (2.1-6.9); NEUTROPHILS % 43.1 % (38.7-80.0); PLATELET COUNT 155 x10e3/uL (140-360); RED BLOOD COUNT 4.47 x10e6/uL (3.6-5.1); RED CELL DISTRIBUTION WIDTH 17.2 % (11.7-14.4)
[2018-03-09 05:15] LABS: ALANINE AMINOTRANSFERASE 10 IU/L (0-55); ALBUMIN 3.4 g/dL (3.5-5.0); ALBUMIN/GLOBULIN RATIO 1.3 (0.8-2.0); ALKALINE PHOSPHATASE 61 IU/L (40-150); ANION GAP 16.2 mmol/L (8-16); BLOOD UREA NITROGEN 13 mg/dL (7-26); BUN/CREATININE RATIO 17 (6-25); CALCIUM 8.5 mg/dL (8.4-10.2); CARBON DIOXIDE 30 mmol/L (22-29); CHLORIDE 90 mmol/L (98-107); CREATININE, SERUM 0.75 mg/dL (0.57-1.11); EST GLOMERULAR FILTRATION RATE > 60 ML/MIN (60-); GLUCOSE 125 mg/dL (74-118); POTASSIUM 3.2 mmol/L (3.5-5.1); SODIUM 133 mmol/L (136-145)
[2018-03-09] MEDS: FUROSEMIDE INJ 10 MG/ML 2 ML VIAL IV SCH ×4 (06:00→18:37)
[2018-03-09] MEDS: LEVOTHYROXINE SODIUM 50 MCG TAB PO SCH (06:00)
[2018-03-09] MEDS ORDERED: POTASSIUM CHLORIDE 20 MEQ TAB CR PO NR ×2 (06:30→11:00)
[2018-03-09 06:37] LABS: MAGNESIUM 1.7 MG/DL (1.3-2.1); PHOSPHORUS 3.6 MG/DL (2.3-4.7)
[2018-03-09 07:16] LABS: EOSINOPHILS % (MANUAL) 1 % (0-7); LYMPHOCYTES % (MANUAL) 32 % (19-48); MONOCYTES % (MANUAL) 7 % (3.4-9.0); NEUTROPHILS % (MANUAL) 55 % (40-74)
[2018-03-09 07:17] LABS: ANISOCYTOSIS SLIGHT; PLATELET ESTIMATE ADEQUATE; PLATELET MORPHOLOGY COMMENT FEW LARGE; RBC MORPHOLOGY COMMENT NORMAL
[2018-03-09] MEDS: PANTOPRAZOLE SOD 40 MG TABEC PO SCH (08:18)
[2018-03-09] MEDS: ALPRAZOLAM 0.5 MG TAB PO PRN (08:18)
[2018-03-09] MEDS: FISH OIL PO SCH (08:27)
[2018-03-09] MEDS: ASPIRIN 81 MG CHEW TAB PO SCH (08:27)
[2018-03-09] MEDS: OMEGA PO SCH (08:27)
[2018-03-09] MEDS: FATTY ACIDS PO SCH (08:27)
[2018-03-09] MEDS: CLOPIDOGREL BISULFATE 75 MG TAB PO SCH (08:27)
[2018-03-09] MEDS: METOPROLOL SUCCINATE 25 MG TAB XL PO SCH (09:25)
[2018-03-09] MEDS: AZITHROMYCIN 500MG/NS 250 ML 250 ML IV SCH (12:50)
[2018-03-09] MEDS ORDERED: BISACODYL 10 MG SUPP PR ONE (15:45)
[2018-03-09] MEDS ORDERED: POTASSIUM CHLORIDE 20 MEQ TAB CR PO SCH (16:15)
--- NOTE | 2018-03-09 16:15 | Consultation ---
DATE OF CONSULTATION: CARDIOLOGY CONSULTATION REASON FOR CONSULTATION: Heart failure and pleural effusions. HISTORY OF PRESENT ILLNESS: This is an 82-year-old woman with a prior history of carotid artery stenosis, peripheral arterial disease, cerebrovascular accident, hypertension, hyperlipidemia, prior history of pneumonia with subsequent pleural effusions, who presented to the emergency department with fatigue, shortness of breath and a fall. Patient was admitted here in December for pneumonia. Most of the medical history is taken from the chart and the daughter at bedside as the patient cannot provide me the exact details of her presenting symptoms or past medical history. She evidently was returning from the bathroom and subsequently fell due to severe weakness in her lower extremity. She also reports progressively worsening shortness of breath. She was found to have pleural effusions, which prompted our consultation. She currently has no chest pain or palpitations. She is also working with physical therapy at bedside. REVIEW OF SYSTEMS: A 12-point review of systems was conducted, is negative otherwise as above in the HPI. PAST MEDICAL HISTORY: Hypertension, peripheral arterial disease, carotid artery stenosis, cerebrovascular accident, prior tobacco use, hypertension, hyperlipidemia, prior pneumonias, pleural effusion. PAST SURGICAL HISTORY: Hysterectomy. PAST FAMILY HISTORY: No premature coronary artery disease or sudden cardiac . SOCIAL HISTORY: No illicit drug use, alcohol use, tobacco use. ALLERGIES: SHE IS ALLERGIC TO PENICILLIN, STATINS AND CELEBREX. MEDICATIONS: See medication reconciliation form. PHYSICAL EXAMINATION VITAL SIGNS: Temperature is 98.4, heart rate is 112, respiratory rate is 20, blood pressure is 119/93, and oxygen saturation is 98% on 2 liters nasal cannula. GENERALLY: She is a chronically ill-appearing elderly woman seated at bedside, working with physical therapy. No apparent distress. HEAD: Normocephalic, atraumatic. EYES: The extraocular muscles are intact. Conjunctiva is clear. NECK: No JVD. There is a bruit over the right. CARDIOVASCULAR: Regular rate and rhythm. No obvious murmurs. LUNGS: Diminished breath sounds at bilateral bases. ABDOMEN: Soft, nontender, nondistended. EXTREMITIES: Trace edema. VASCULAR: Diminished pulses. SKIN: Warm, dry, intact. NEUROLOGIC: Overall no focal deficits. Laboratory data shows a white blood cell count of 22.5. Hemoglobin is 11.6. Platelets of 155. Chemistries show a potassium of 3.2, a creatinine of 0.75. Troponins are negative x4. All other laboratory data were reviewed. Imaging data revealed enlarging bilateral pleural effusions. Telemetry monitoring revealed normal sinus rhythm to sinus tachycardia or premature atrial complexes. IMPRESSION AND RECOMMENDATIONS 1. Nbhjs-zz-klptgnm diastolic heart failure. The patient evidently had a prior echo showing normal left ventricular function. However, this is unavailable to me. Will repeat 2-D echocardiogram here. Continue Lasix 20 mg IV q.12 h. for diuresis. Continue to monitor urinary outputs. Patient's hemodynamics are stable, and heart rate is mildly elevated due to working with physical therapy. Continue metoprolol succinate 12.5 mg daily otherwise. 2. Peripheral arterial disease. Patient has a prior carotid endarterectomy and severe stenosis of the right upper extremity. Continue aspirin and Plavix. She is ALLERGIC TO STATIN MEDICATIONS. 3. Shortness of breath with uxplb-zz-tkdfxha respiratory failure with hypoxemia. Treatment per Pulmonary. Patient may require a thoracentesis. Continue with diuresis. Thank you for the consultation. Will follow along with you. Job#: [id number] DENNIS
--- NOTE | 2018-03-09 16:17 | Progress Note ---
DATE: PULMONARY CRITICAL CARE PROGRESS NOTE The patient has some atrial fibrillation on the monitor today. She was seen in consultation by cardiology. She denies fever. She denies diarrhea. She is not complaining of abdominal pain. Her dyspnea and cough are stable. PHYSICAL EXAMINATION VITALS: The blood pressure is 148/82, pulse is ranging from 109-120. The saturation is 98% on 2 L. HEENT: Shows no facial swelling or erythema. CARDIAC: Reveals a regular rate and rhythm with a normal S1 and S2. LUNGS: Auscultation of the lungs reveals decreased breath sounds at the bases. ABDOMEN: Soft and nontender. There is no rebound or guarding. EXTREMITIES: There is 1+ leg edema bilaterally. LABORATORY DATA: White blood cell count is 22.5 and the hemoglobin is 11.7. The platelet count is 155,000. The BUN to creatinine ratio is 13 to 0.75. IMPRESSION 1. Increasing pleural effusions on chest x-ray. 2. Atrial fibrillation. 3. Recurrent aspiration pneumonitis. 4. Increasing white blood cell count. PLAN 1. Ultrasound-guided thoracentesis is planned for tomorrow. 2. Cardiology will evaluate the patient. 3. Continue current antibiotics and repeat white blood cell count tomorrow. 4. Stool for C. diff. 5. Discuss further therapy with Dr. Locke and Dr. Coffey. Job#: [id number] ASMITA
[2018-03-09] MEDS: ENOXAPARIN SOD INJ 40 MG/0.4 ML SYR SC SCH (17:00)
[2018-03-09 21:21] LABS: BODY FLUID APPEARANCE TURBID; BODY FLUID COLOR RED; BODY FLUID TYPE PLEURAL
[2018-03-09 21:22] LABS: RBC,BODY FLUID 69696 cells/uL; WBC,BODY FLUID 198 cells/uL
[2018-03-09] MEDS: ACETAMINOPHEN 325 MG TAB PO PRN (21:34)
[2018-03-09] MEDS: MELATONIN 5 MG TABLET PO SCH (21:34)
--- NOTE | 2018-03-09 21:39 | Diagnostic Imaging Report ---
EXAM: CHEST XRAY POST PROCEDURE, AP 1 view INDICATION: Status post thoracentesis COMPARISON: AP view of the chest March 08, 2018 FINDINGS: LINES/TUBES: None LUNGS: Bibasilar atelectasis PLEURA: Bilateral pleural effusions, decreased on the left since thoracentesis. No pneumothorax. HEART AND MEDIASTINUM: Normal size and contour. BONES AND SOFT TISSUES: No acute findings. IMPRESSION: Bilateral pleural effusions, decreased on the left since thoracentesis. No pneumothorax. Signed by: Dr. Kailyn Martin M.D. on 03/09/2018 9:35 PM
[2018-03-10] VITALS (12 sets, daily range): BP systolic 100–161; BP diastolic 44–90
[2018-03-10] MEDS: CLINDAMYCIN PHOS 900MG/ 50ML 50 ML IV SCH ×3 (01:00→16:53)
[2018-03-10 01:47] LABS: LYMPHOCYTES,BODY FLUID 53 %; MONO/MACROPHG,BODY FLUID 5 %; NEUTROPHILS,BODY FLUID 49 %; OTHER CELLS,BODY FLUID 5 %
[2018-03-10 04:39] LABS: BASOPHILS # (AUTO) 0.1 (0.0-0.1); BASOPHILS % 0.5 % (0.0-1.0); EOSINOPHILS # (AUTO) 0.4 (0.0-0.4); EOSINOPHILS % 2.3 % (0.0-6.0); HEMATOCRIT 34.3 % (34.2-44.1); HEMOGLOBIN 10.9 g/dL (12.0-16.0); LYMPHOCYTES % 45.8 % (18.0-39.1); MEAN CORPUSCULAR HEMOGLOBIN 26.4 pg (28-32); MEAN CORPUSCULAR HGB CONC 31.8 g/dL (31-35); MEAN CORPUSCULAR VOLUME 83.1 fL (81-99); MONOCYTES # (AUTO) 1.6 (0.2-0.8); NEUTROPHILS # (AUTO) 7.4 (2.1-6.9); NEUTROPHILS % 41.9 % (38.7-80.0); PLATELET COUNT 161 x10e3/uL (140-360); RED BLOOD COUNT 4.13 x10e6/uL (3.6-5.1); RED CELL DISTRIBUTION WIDTH 17.4 % (11.7-14.4)
[2018-03-10 05:02] LABS: ALANINE AMINOTRANSFERASE 10 IU/L (0-55); ALBUMIN 3.2 g/dL (3.5-5.0); ALBUMIN/GLOBULIN RATIO 1.3 (0.8-2.0); ALKALINE PHOSPHATASE 58 IU/L (40-150); ANION GAP 15.8 mmol/L (8-16); BLOOD UREA NITROGEN 17 mg/dL (7-26); BUN/CREATININE RATIO 24 (6-25); CALCIUM 8.5 mg/dL (8.4-10.2); CARBON DIOXIDE 31 mmol/L (22-29); CHLORIDE 95 mmol/L (98-107); CREATININE, SERUM 0.72 mg/dL (0.57-1.11); EST GLOMERULAR FILTRATION RATE > 60 ML/MIN (60-); GLUCOSE 126 mg/dL (74-118); POTASSIUM 3.8 mmol/L (3.5-5.1); SODIUM 138 mmol/L (136-145)
[2018-03-10] MEDS: LEVOTHYROXINE SODIUM 50 MCG TAB PO SCH (05:21)
[2018-03-10] MEDS: FUROSEMIDE INJ 10 MG/ML 2 ML VIAL IV SCH ×2 (05:21→17:54)
[2018-03-10] MEDS: ACETAMINOPHEN 325 MG TAB PO PRN (05:21)
[2018-03-10] MEDS: ALPRAZOLAM 0.5 MG TAB PO PRN ×2 (05:23→20:35)
[2018-03-10] MEDS: PANTOPRAZOLE SOD 40 MG TABEC PO SCH (07:34)
[2018-03-10] MEDS: OMEGA PO SCH (09:00)
[2018-03-10] MEDS: FATTY ACIDS PO SCH (09:00)
[2018-03-10] MEDS: FISH OIL PO SCH (09:00)
[2018-03-10] MEDS: AZTREONAM 2 GM VIAL IV SCH ×4 (09:17→23:37)
[2018-03-10] MEDS: ASPIRIN 81 MG CHEW TAB PO SCH (09:17)
[2018-03-10] MEDS: BALSAM PERU/CASTOR OIL 60 GM OINT...G. TP SCH (09:17)
[2018-03-10] MEDS: CLOPIDOGREL BISULFATE 75 MG TAB PO SCH (09:19)
[2018-03-10] MEDS: METOPROLOL SUCCINATE 25 MG TAB XL PO SCH (09:20)
[2018-03-10] MEDS: AZITHROMYCIN 500MG/NS 250 ML 250 ML IV SCH (12:57)
--- NOTE | 2018-03-10 15:08 | Progress Note ---
DATE: March 10, 2018 SUBJECTIVE: Patient is doing well today. I am covering for Dr. Coffey. The patient was admitted for underlying iidic-my-sbinxgj respiratory failure and underlying pulmonary edema requiring thoracentesis that was performed today. The patient also had some severe sepsis with UTI. OBJECTIVE VITALS: Temperature is 98, pulse 89, respiratory rate 22, blood pressure 122/74, pulse ox 96% on room air. LAB FINDINGS: White count 17, hemoglobin 10.9, hematocrit 34, platelets 161. Chemistries: Sodium 138, potassium 3.8, chloride 95, bicarb 31, anion gap 15, BUN 17, creatinine 0.72. Glucose is 126. Calcium is 8.5. Phosphorus is 2.8. LFTs were normal. Albumin is 3.2. Urinalysis: Negative. MICROBIOLOGY: Sputum culture is negative. Blood cultures: No growth. One of the blood cultures was coag-negative staph. IMAGING STUDIES: Chest x-ray: Bilateral pleural effusions, decreased on the left since the thoracentesis. No evidence of pneumothorax. CT brain was negative. PHYSICAL EXAMINATION GENERAL: Not in acute distress. Alert, oriented x3, cooperative on examination. HEENT: Head: Normocephalic, atraumatic. Eyes: Pupils are equal and reactive to light bilaterally. Extraocular movements intact bilaterally. NECK: Supple with good range of motion. THROAT: No evidence of any erythema or exudates in the posterior pharynx. Has poor dentition. PULMONARY: Clear to auscultation bilaterally. No wheezing, no rales, no rhonchi, no crackles appreciated. CARDIOVASCULAR: Positive S1/S2. No murmurs, rubs or gallops appreciated. ABDOMEN: Soft, nondistended, nontender to palpation. Bowel sounds present. MUSCULOSKELETAL: Strength is 5/5 throughout. No evidence of any musculoskeletal deficit on examination. No weakness appreciated. NEUROLOGICAL: Cranial nerves II through XII are grossly intact. No evidence of any neurological deficit on exam. SKIN: Intact. Warm to touch. Good capillary refill. PSYCHIATRIC: Normal affect and mood. EXTREMITIES: No edema. Good range of motion throughout. IMPRESSION AND PLAN 1. Fcnqe-nq-mjesocu respiratory failure, currently on nasal cannula at baseline, doing well with no issues. Status post thoracentesis performed today with fluid removed. Pulmonary is following. Continue with IV diuretics 2. 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 Outpatient followup. Pulmonary is following. 3. Aspiration pneumonitis: Blood cultures 1 of 2 was coagulase-negative staphylococcus, likely contaminant. Repeat blood culture was negative. Continue with IV antibiotics for now. Will be discharged on oral antibiotics to care home. 4. Severe sepsis secondary to aspiration pneumonitis: Resolving. Continue with IV antibiotics. Blood pressure is stable. Cultures reviewed. 5. Medically debilitated: Continue with PT and OT. Will be discharged to care home facility. 6. Supraventricular tachycardia: There is no more evidence of SVT, but pulmonary has been consulted. Awaiting 2D echo results upon recommendations from cardiology. 7. Prophylaxis: Lovenox. 8. Disposition: Inpatient in IMU. Pulmonary and cardiology consulted. Discharge planning. Once cleared by cardiology, and it seems they have been cleared by pulmonary, will discharge tomorrow back to [facility]. The white count is still slightly elevated, not sure from what, but we are going to repeat labs in the morning. In any event, she will likely be discharged tomorrow once her labs are better and she has been cleared by the consultants. Job#: [id number]
[2018-03-10] MEDS: ENOXAPARIN SOD INJ 40 MG/0.4 ML SYR SC SCH (16:53)
--- NOTE | 2018-03-10 18:52 | Progress Note ---
DATE: CARDIOLOGY PROGRESS NOTE SUBJECTIVE: Patient feels mildly better. She is status post thoracentesis. No chest pain. Shortness of breath has improved. OBJECTIVE VITAL SIGNS: Temperature is 98, heart rate is 89, respirations are 22, blood pressure is 122/74, oxygen saturation is 96% on room air. GENERAL: She is thin, elderly woman, lying comfortably in bed, in no apparent distress. HEAD: Normocephalic, atraumatic. NECK: No jugular venous distention. CARDIOVASCULAR: Regular rate and rhythm. No murmurs. Normal S1 and S2. LUNGS: Diminished breath sounds at bilateral bases. ABDOMEN: Soft, nontender, nondistended. NEUROLOGIC: No focal deficits noted. TELEMETRY: Monitoring revealed normal sinus rhythm with premature atrial complexes. LABORATORY DATA AND IMAGING STUDIES: Reviewed. IMPRESSION/RECOMMENDATIONS 1. Gnixw-ze-fuwfady diastolic heart failure. The patient had normal left ventricular systolic function. Continue Lasix for diuresis. 2. Pleural effusions. She is status post thoracentesis. Treatment per pulmonology. 3. Peripheral arterial disease. She had a prior history of carotid endarterectomy. Continue aspirin and Plavix. She is allergic to statins. 4. Pericardial effusion. She has a small to moderate anterior pericardial effusion, which is fibrinous in quality. There was no echocardiographic evidence of tamponade. She is clinically hemodynamically stable and not tachycardiac or short of breath. Thank you for the consultation. Job#: [id number] VAS
[2018-03-10] MEDS: MELATONIN 5 MG TABLET PO SCH (20:35)
[2018-03-11] VITALS (10 sets, daily range): BP systolic 100–140; BP diastolic 50–96
[2018-03-11] MEDS: CLINDAMYCIN PHOS 900MG/ 50ML 50 ML IV SCH ×2 (01:12→09:05)
[2018-03-11] MEDS: ACETAMINOPHEN 325 MG TAB PO PRN (01:12)
[2018-03-11] MEDS: ALPRAZOLAM 0.5 MG TAB PO PRN (04:39)
[2018-03-11 04:52] LABS: BASOPHILS # (AUTO) 0.1 (0.0-0.1); BASOPHILS % 0.6 % (0.0-1.0); EOSINOPHILS # (AUTO) 0.8 (0.0-0.4); EOSINOPHILS % 4.6 % (0.0-6.0); HEMATOCRIT 31.9 % (34.2-44.1); HEMOGLOBIN 9.9 g/dL (12.0-16.0); LYMPHOCYTES # (AUTO) 9.9 (1.0-3.2); LYMPHOCYTES % 55.9 % (18.0-39.1); MEAN CORPUSCULAR HEMOGLOBIN 26.3 pg (28-32); MEAN CORPUSCULAR VOLUME 84.8 fL (81-99); MONOCYTES # (AUTO) 0.8 (0.2-0.8); MONOCYTES % 4.7 % (4.4-11.3); NEUTROPHILS # (AUTO) 5.9 (2.1-6.9); NEUTROPHILS % 33.6 % (38.7-80.0); PLATELET COUNT 150 x10e3/uL (140-360); RED BLOOD COUNT 3.76 x10e6/uL (3.6-5.1); RED CELL DISTRIBUTION WIDTH 17.7 % (11.7-14.4)
[2018-03-11 05:14] LABS: ANION GAP 14.2 mmol/L (8-16); BLOOD UREA NITROGEN 26 mg/dL (7-26); BUN/CREATININE RATIO 34 (6-25); CALCIUM 7.9 mg/dL (8.4-10.2); CARBON DIOXIDE 33 mmol/L (22-29); CHLORIDE 94 mmol/L (98-107); CREATININE, SERUM 0.76 mg/dL (0.57-1.11); EST GLOMERULAR FILTRATION RATE > 60 ML/MIN (60-); GLUCOSE 113 mg/dL (74-118); POTASSIUM 3.2 mmol/L (3.5-5.1); SODIUM 138 mmol/L (136-145)
[2018-03-11] MEDS: FUROSEMIDE INJ 10 MG/ML 2 ML VIAL IV SCH (05:42)
[2018-03-11] MEDS: LEVOTHYROXINE SODIUM 50 MCG TAB PO SCH (05:42)
[2018-03-11 07:24] LABS: EOSINOPHILS % (MANUAL) 4 % (0-7); LYMPHOCYTES % (MANUAL) 64 % (19-48); NEUTROPHILS % (MANUAL) 31 % (40-74); RBC MORPHOLOGY COMMENT ABNORMAL
[2018-03-11 07:25] LABS: ANISOCYTOSIS SLIGHT; PLATELET ESTIMATE ADEQUATE; PLATELET MORPHOLOGY COMMENT NORMAL
[2018-03-11] MEDS: FATTY ACIDS PO SCH (09:00)
[2018-03-11] MEDS: FISH OIL PO SCH (09:00)
[2018-03-11] MEDS: OMEGA PO SCH (09:00)
[2018-03-11] MEDS: METOPROLOL SUCCINATE 25 MG TAB XL PO SCH (09:05)
[2018-03-11] MEDS: AZTREONAM 2 GM VIAL IV SCH (09:05)
[2018-03-11] MEDS: BALSAM PERU/CASTOR OIL 60 GM OINT...G. TP SCH (09:05)
[2018-03-11] MEDS: CLOPIDOGREL BISULFATE 75 MG TAB PO SCH (09:05)
[2018-03-11] MEDS: PANTOPRAZOLE SOD 40 MG TABEC PO SCH (09:05)
[2018-03-11] MEDS: ASPIRIN 81 MG CHEW TAB PO SCH (09:05)
[2018-03-11] MEDS: AZITHROMYCIN 500MG/NS 250 ML 250 ML IV SCH (12:29)
[2018-03-11] MEDS ORDERED: LEVOFLOXACIN 500 MG TAB PO SCH (14:00)
[2018-03-11] MEDS ORDERED: POTASSIUM CHLORIDE 20MEQ/15ML UDC PO ONE (14:15)
[2018-03-11] MEDS ORDERED: CLINDAMYCIN HC150 MG PO (14:44)
[2018-03-11] MEDS ORDERED: ALPRAZOLAM0.5 MG PO (14:44)
[2018-03-11] MEDS ORDERED: TOPROL XL25 MG PO (14:44)
[2018-03-11] MEDS ORDERED: LOVENOX40 MG/0.4 SC (14:44)
[2018-03-11] MEDS ORDERED: ACETAMINOPHEN325 M1 PO (14:44)
[2018-03-11] MEDS ORDERED: MELATONIN5 M2 PO (14:44)
[2018-03-11] MEDS ORDERED: ONDANSETRON4 MG/2 M1 IV (14:44)
[2018-03-11] MEDS ORDERED: CLINDAMYCIN HCL 150 MG CAP PO SCH (15:00)
--- NOTE | 2018-03-11 15:38 | Progress Note ---
DATE: March 11, 2018 CARDIOLOGY PROGRESS NOTE SUBJECTIVE: Ms. Hylton feels better. She denies any chest pain or palpitations. PHYSICAL EXAMINATION VITAL SIGNS: Afebrile. Heart rate 97, blood pressure 115/69. CARDIOVASCULAR: Irregular rhythm. Systolic murmur. LUNGS: Clear to auscultation bilaterally with decreased breath sounds at the bases. TELEMETRY: Shows sinus rhythm with PACs. ASSESSMENT 1. Fyjsv-kc-tqifmec diastolic heart failure. 2. Pericardial effusion. RECOMMENDATIONS: Patient is stable for transfer to alf. She will require repeat echocardiogram to follow the status of and size of her pericardia effusion. Job#: [id number] LPA
--- NOTE | 2018-03-13 07:22 | Diagnostic Imaging Report ---
Procedure: Ultrasound-guided left diagnostic and therapeutic thoracentesis shotblast operator: Dr. Jyotsna Marie Pre-operative diagnosis: Small to moderate left pleural effusion Post-operative diagnosis: Small left pleural effusion Local sedation: 10 cc of 1% subcutaneous lidocaine Estimated blood loss: Minimal Implants: None TECHNIQUE/FINDINGS: Informed consent was obtained from the patient and documented in the medical record. The patient was positioned in the decubitus position. The left back was prepped and draped in standard sterile fashion. 1% lidocaine was infiltrated into the skin and subcutaneous tissues for local anesthesia. Preliminary ultrasound demonstrated a small to moderate left pleural effusion. Then under sonographic guidance, 5 Fr catheter was advanced into the left pleural space. The catheter was connected to the suction system. A total of 250 cc of serosanguinous fluid was removed. The catheter was removed and a sterile, occlusive dressing was applied. The patient tolerated the procedure well. IMPRESSION: Ultrasound-guided left diagnostic and therapeutic thoracentesis with removal of 250 cc of serosanguinous fluid. Signed by: Dr. Jyotsna Marie MD on 03/13/2018 7:19 AM
== END 2018-03-11 16:04 | disposition home or self-care (01) | DRG 871 ==
LOC: ER 06:56 → ERHOLD 09:44 → OBSVTOIN 13:47 → IMCU 15:42
PROVIDERS: ADMIT Internal Medicine; ATTEND Internal Medicine
PROC: 0W9B3ZZ Drainage of Left Pleural Cavity, Percutaneous Approach (ICD-10-PCS; principal; 2018-03-05)
PROC: 5A09357 Assistance with Respiratory Ventilation, Less than 24 Consecutive Hours, Continuous Positive Airway Pressure (ICD-10-PCS; 2018-03-05)
DX: A41.9 Sepsis, unspecified organism (principal); J69.0 Pneumonitis due to inhalation of food and vomit; J96.21 Acute and chronic respiratory failure with hypoxia; I50.33 Acute on chronic diastolic (congestive) heart failure; N39.0 Urinary tract infection, site not specified; I31.3 Pericardial effusion (noninflammatory); C91.10 Chronic lymphocytic leukemia of B-cell type not having achieved remission; G93.40 Encephalopathy, unspecified; I47.1 Supraventricular tachycardia; E87.4 Mixed disorder of acid-base balance; R65.20 Severe sepsis without septic shock; I11.0 Hypertensive heart disease with heart failure; J98.4 Other disorders of lung; E03.9 Hypothyroidism, unspecified; F41.9 Anxiety disorder, unspecified; E78.5 Hyperlipidemia, unspecified; I73.9 Peripheral vascular disease, unspecified; I65.29 Occlusion and stenosis of unspecified carotid artery; I48.91 Unspecified atrial fibrillation; R53.81 Other malaise; Z79.02 Long term (current) use of antithrombotics/antiplatelets; Z87.891 Personal history of nicotine dependence; Z79.82 Long term (current) use of aspirin; Z88.0 Allergy status to penicillin; Z88.8 Allergy status to other drugs, medicaments and biological substances; Z91.81 History of falling; Z86.73 Personal history of transient ischemic attack (TIA), and cerebral infarction without residual deficits
CPT/HCPCS: 32555; 36415; 36600; 70450; 71045; 71260; 76604; 80048; 80053; 81001; 82550; 82553; 82805; 83615; 83735; 83880; 84100; 84132; 84157; 84484; 85025; 85610; 85730; 87040; 87070; 87071; 87186; 87205; 87493; 88112; 88305; 89051; 93005; 93306; 94660; 96361; 97139; 99285; J0456; J0696; J1650; J1940; J2060; J2920; J7030; J7050; Q9967

== ENCOUNTER 2020-08-13 12:56 | Inpatient (IN) | payer MEDICARE ==
[~2020-08-13] VITALS: Ht 165.1 cm; Wt 59.1 kg
[~2020-08-13 12:56] MED LIST changes: +ACETAMINOPHEN325 M1 PO; +ALBUTEROL0.63 MG/3; +ALPRAZOLAM0.5 MG PO; +CLINDAMYCIN HC150 MG PO; +LOVENOX40 MG/0.4 SC; +MAGNESIUM400 MG; +MELATONIN10 M1 PO; +MELATONIN5 M2 PO; +ONDANSETRON4 MG/2 M1 IV; +PLAVIX75 MG PO; +TOPROL XL25 MG PO
[2020-08-13 13:56] LABS: BASOPHILS # (AUTO) 0.2 (0.0-0.1); BASOPHILS % 0.5 % (0.0-1.0); EOSINOPHILS # (AUTO) 0.2 (0.0-0.4); EOSINOPHILS % 0.4 % (0.0-6.0); HEMATOCRIT 44.1 % (34.2-44.1); LYMPHOCYTES # (AUTO) 29.8 (1.0-3.2); LYMPHOCYTES % 74.6 % (18.0-39.1); MEAN CORPUSCULAR HEMOGLOBIN 28.7 pg (28-32); MEAN CORPUSCULAR HGB CONC 29.5 g/dL (31-35); MEAN CORPUSCULAR VOLUME 97.4 fL (81-99); MONOCYTES # (AUTO) 1.9 (0.2-0.8); MONOCYTES % 4.7 % (4.4-11.3); NEUTROPHILS # (AUTO) 7.6 (2.1-6.9); NEUTROPHILS % 19.2 % (38.7-80.0); PLATELET COUNT 180 x10e3/uL (140-360); RED BLOOD COUNT 4.53 x10e6/uL (3.6-5.1); RED CELL DISTRIBUTION WIDTH 16.2 % (11.7-14.4)
[2020-08-13 14:09] LABS: INR 0.93; PARTIAL THROMBOPLASTIN TIME 27.5 seconds (23.8-35.5); PROTHROMBIN TIME 13.1 seconds (11.9-14.5)
[2020-08-13 14:19] LABS: ALANINE AMINOTRANSFERASE 34 IU/L (0-55); ALBUMIN 3.8 g/dL (3.5-5.0); ALBUMIN/GLOBULIN RATIO 1.2 (0.8-2.0); ALKALINE PHOSPHATASE 78 IU/L (40-150); ANION GAP 11.9 mmol/L (8-16); BLOOD UREA NITROGEN 30 mg/dL (7-26); BUN/CREATININE RATIO 39 (6-25); CALCIUM 8.7 mg/dL (8.4-10.2); CARBON DIOXIDE 34 mmol/L (22-29); CHLORIDE 100 mmol/L (98-107); CREATINE KINASE 12 IU/L (29-168); CREATININE, SERUM 0.76 mg/dL (0.57-1.11); EST GLOMERULAR FILTRATION RATE > 60 ML/MIN (60-); GLUCOSE 105 mg/dL (74-118); MAGNESIUM 2.3 MG/DL (1.3-2.1); POTASSIUM 4.9 mmol/L (3.5-5.1); SODIUM 141 mmol/L (136-145)
[2020-08-13] MEDS ORDERED: MEROPENEM 1GM 100 ML IV ONE (14:30)
[2020-08-13 15:30] LABS: LYMPHOCYTES % (MANUAL) 81 % (19-48); MONOCYTES % (MANUAL) 1 % (3.4-9.0); NEUTROPHILS % (MANUAL) 18 % (40-74)
[2020-08-13 15:32] LABS: PLATELET ESTIMATE ADEQUATE
[2020-08-13 15:33] LABS: PLATELET MORPHOLOGY COMMENT FEW LARGE; RBC MORPHOLOGY COMMENT NORMAL
[2020-08-13] MEDS ORDERED: ONDANSETRON HCL INJ 2MG/ML 2ML 2 MG/ML VIAL IV PRN (15:45)
[2020-08-13] MEDS ORDERED: ALBUTEROL SULF 0.083% NEB SOLN 3 ML NEB NEB PRN (15:45)
[2020-08-13] MEDS ORDERED: CLONIDINE HCL 0.2 MG TAB PO PRN (15:45)
[2020-08-13] MEDS ORDERED: IOPAMIDOL 370 MG/ML 200 ML INFUS..BTL INJ ONE (16:42)
[2020-08-13] MEDS ORDERED: SODIUM CHLORIDE 0.9% 50ML 50 ML ONE (16:42)
[2020-08-13] MEDS: AZITHROMYCIN 500MG/NS 250 ML 250 ML IV SCH (17:14)
[2020-08-13] MEDS: ENOXAPARIN SOD INJ 40 MG/0.4 ML SYR SC SCH (17:14)
[2020-08-13] MEDS ORDERED: METOPROLOL TARTRATE 25 MG TAB PO ONE (17:45)
[2020-08-13 20:00] VITALS: BP 118/65
[2020-08-13 21:00] VITALS: BP 118/65
[2020-08-13] MEDS ORDERED: ZOLPIDEM TARTRATE 5 MG TAB PO PRN (21:00)
[2020-08-13] MEDS ORDERED: PIPER-TAZ 3.375 GM 50 ML IV SCH (22:00)
[2020-08-13] MEDS ORDERED: MEROPENEM 1GM 100 ML IV SCH (23:00)
[2020-08-14] VITALS (8 sets, daily range): BP systolic 91–119; BP diastolic 57–69
[2020-08-14] MEDS ORDERED: SODIUM CHLORIDE 0.9% 250ML 250 ML ONE (02:16)
[2020-08-14] MEDS: LEVOTHYROXINE SODIUM 50 MCG TAB PO SCH (06:00)
[2020-08-14 06:03] LABS: BASOPHILS # (AUTO) 0.1 (0.0-0.1); BASOPHILS % 0.2 % (0.0-1.0); EOSINOPHILS # (AUTO) 0.2 (0.0-0.4); EOSINOPHILS % 0.4 % (0.0-6.0); HEMATOCRIT 40.9 % (34.2-44.1); HEMOGLOBIN 12.2 g/dL (12.0-16.0); LYMPHOCYTES # (AUTO) 28.8 (1.0-3.2); LYMPHOCYTES % 74.8 % (18.0-39.1); MEAN CORPUSCULAR HEMOGLOBIN 28.8 pg (28-32); MEAN CORPUSCULAR HGB CONC 29.8 g/dL (31-35); MEAN CORPUSCULAR VOLUME 96.7 fL (81-99); MONOCYTES # (AUTO) 1.9 (0.2-0.8); MONOCYTES % 4.9 % (4.4-11.3); NEUTROPHILS # (AUTO) 7.4 (2.1-6.9); NEUTROPHILS % 19.2 % (38.7-80.0); PLATELET COUNT 177 x10e3/uL (140-360); RED BLOOD COUNT 4.23 x10e6/uL (3.6-5.1); RED CELL DISTRIBUTION WIDTH 15.9 % (11.7-14.4)
[2020-08-14 06:27] LABS: ALANINE AMINOTRANSFERASE 54 IU/L (0-55); ALBUMIN 3.3 g/dL (3.5-5.0); ALBUMIN/GLOBULIN RATIO 1.2 (0.8-2.0); ALKALINE PHOSPHATASE 69 IU/L (40-150); ANION GAP 10.4 mmol/L (8-16); BLOOD UREA NITROGEN 20 mg/dL (7-26); BUN/CREATININE RATIO 34 (6-25); CALCIUM 8.4 mg/dL (8.4-10.2); CARBON DIOXIDE 37 mmol/L (22-29); CHLORIDE 99 mmol/L (98-107); CREATININE, SERUM 0.58 mg/dL (0.57-1.11); EST GLOMERULAR FILTRATION RATE > 60 ML/MIN (60-); GLUCOSE 103 mg/dL (74-118); POTASSIUM 4.4 mmol/L (3.5-5.1); SODIUM 142 mmol/L (136-145)
[2020-08-14 06:57] LABS: CREATINE KINASE MB 1.2 ng/mL (0-5.0)
[2020-08-14 07:23] LABS: EOSINOPHILS % (MANUAL) 1 % (0-7); LYMPHOCYTES % (MANUAL) 76 % (19-48); MONOCYTES % (MANUAL) 1 % (3.4-9.0); NEUTROPHILS % (MANUAL) 20 % (40-74)
[2020-08-14 07:24] LABS: PLATELET ESTIMATE ADEQUATE; PLATELET MORPHOLOGY COMMENT NORMAL; RBC MORPHOLOGY COMMENT NORMAL; SMUDGE CELLS FEW
[2020-08-14] MEDS ORDERED: METOPROLOL SUCCINATE 25 MG TAB XL PO SCH (09:00)
[2020-08-14] MEDS: ASPIRIN 81 MG CHEW TAB PO SCH (09:00)
[2020-08-14] MEDS: METOPROLOL SUCCINATE 25 MG TAB XL PO SCH (09:00)
[2020-08-14] MEDS: FUROSEMIDE INJ 10 MG/ML 2 ML VIAL IV SCH ×2 (09:20→17:58)
[2020-08-14] MEDS: MEROPENEM 1GM 100 ML IV SCH ×3 (09:30→21:54)
[2020-08-14 14:56] LABS: BODY FLUID TYPE PLEURAL
[2020-08-14 14:57] LABS: BODY FLUID APPEARANCE CLEAR; BODY FLUID COLOR YELLOW
[2020-08-14 14:58] LABS: WBC,BODY FLUID 807 cells/uL
[2020-08-14 14:59] LABS: RBC,BODY FLUID 1000 cells/uL
[2020-08-14 17:55] LABS: CREATINE KINASE MB 1.5 ng/mL (0-5.0)
[2020-08-14] MEDS: AZITHROMYCIN 500MG/NS 250 ML 250 ML IV SCH (17:58)
[2020-08-14] MEDS: ENOXAPARIN SOD INJ 40 MG/0.4 ML SYR SC SCH (17:58)
[2020-08-14 18:30] LABS: LYMPHOCYTES,BODY FLUID 88 %; MONO/MACROPHG,BODY FLUID 11 %; NEUTROPHILS,BODY FLUID 1 %
[2020-08-15] VITALS (7 sets, daily range): BP systolic 94–122; BP diastolic 56–100
[2020-08-15] MEDS: MEROPENEM 1GM 100 ML IV SCH ×3 (05:32→21:15)
[2020-08-15] MEDS: FUROSEMIDE INJ 10 MG/ML 2 ML VIAL IV SCH ×2 (05:32→18:59)
[2020-08-15] MEDS: LEVOTHYROXINE SODIUM 50 MCG TAB PO SCH (05:32)
[2020-08-15 06:45] LABS: ALANINE AMINOTRANSFERASE 44 IU/L (0-55); ALBUMIN 3.3 g/dL (3.5-5.0); ALBUMIN/GLOBULIN RATIO 1.2 (0.8-2.0); ALKALINE PHOSPHATASE 71 IU/L (40-150); ANION GAP 14.2 mmol/L (8-16); BLOOD UREA NITROGEN 20 mg/dL (7-26); BUN/CREATININE RATIO 31 (6-25); CALCIUM 8.2 mg/dL (8.4-10.2); CARBON DIOXIDE 35 mmol/L (22-29); CHLORIDE 95 mmol/L (98-107); CREATININE, SERUM 0.65 mg/dL (0.57-1.11); EST GLOMERULAR FILTRATION RATE > 60 ML/MIN (60-); GLUCOSE 113 mg/dL (74-118); POTASSIUM 4.2 mmol/L (3.5-5.1); SODIUM 140 mmol/L (136-145)
[2020-08-15 07:05] LABS: BASOPHILS # (AUTO) 0.2 (0.0-0.1); BASOPHILS % 0.4 % (0.0-1.0); EOSINOPHILS # (AUTO) 0.1 (0.0-0.4); EOSINOPHILS % 0.3 % (0.0-6.0); HEMATOCRIT 42.1 % (34.2-44.1); LYMPHOCYTES # (AUTO) 30.7 (1.0-3.2); MEAN CORPUSCULAR HEMOGLOBIN 28.6 pg (28-32); MEAN CORPUSCULAR HGB CONC 30.9 g/dL (31-35); MEAN CORPUSCULAR VOLUME 92.7 fL (81-99); MONOCYTES % 4.7 % (4.4-11.3); NEUTROPHILS # (AUTO) 8.9 (2.1-6.9); NEUTROPHILS % 21.1 % (38.7-80.0); PLATELET COUNT 138 x10e3/uL (140-360); RED BLOOD COUNT 4.54 x10e6/uL (3.6-5.1); RED CELL DISTRIBUTION WIDTH 15.5 % (11.7-14.4)
[2020-08-15 08:43] LABS: LYMPHOCYTES % (MANUAL) 71 % (19-48); MONOCYTES % (MANUAL) 1 % (3.4-9.0); NEUTROPHILS % (MANUAL) 28 % (40-74)
[2020-08-15 08:46] LABS: HYPOCHROMASIA SLIGHT; PLATELET ESTIMATE SLIGHTLY DECREASED; PLATELET MORPHOLOGY COMMENT NORMAL; POLYCHROMASIA FEW; RBC MORPHOLOGY COMMENT NORMAL
[2020-08-15] MEDS: METOPROLOL SUCCINATE 25 MG TAB XL PO SCH (09:00)
[2020-08-15] MEDS: ASPIRIN 81 MG CHEW TAB PO SCH (09:11)
[2020-08-15] MEDS ORDERED: METOPROLOL TARTRATE INJ 1 MG/ML VIAL IV PRN (10:45)
[2020-08-15] MEDS ORDERED: HEPARIN 25,000 UNIT 700 UNIT in DEXTROSE 5% 250ML 250 ML IV SCH ×2 (11:15→11:45)
[2020-08-15] MEDS ORDERED: HEPARIN SOD (PORCINE) 5,000 UNIT/ML VIAL IV ONE (11:45)
[2020-08-15] MEDS: HEPARIN 25,000 UNIT 700 UNIT in DEXTROSE 5% 250ML 250 ML IV SCH (11:50)
[2020-08-15 16:54] LABS: CLARITY,URINE CLEAR (CLEAR); COLOR,URINE YELLOW (YELLOW); KETONES,URINE TRACE (NEGATIVE); LEUKOCYTE ESTERASE ,URINE NEGATIVE (NEGATIVE); NITRITE,URINE NEGATIVE (NEGATIVE); PROTEIN,URINE DIPSTICK NEGATIVE (NEGATIVE); URINE UROBILINOGEN 0.2 mg/dL (0.2 - 1)
[2020-08-15 17:16] LABS: BACTERIA,URINE FEW /HPF; RBC,URINE 0-5 /HPF (0-5); WBC,URINE (MAN) 0-5 /HPF (0-5)
[2020-08-15 17:18] LABS: EPITHELIAL CELLS,URINE RARE /LPF
[2020-08-15] MEDS ORDERED: METRONIDAZOLE 250 MG TAB PO SCH (18:00)
[2020-08-15] MEDS: METRONIDAZOLE 500 MG TAB PO SCH (18:59)
[2020-08-15] MEDS: METOPROLOL TARTRATE 25 MG TAB PO SCH (18:59)
[2020-08-15] MEDS: AZITHROMYCIN 500MG/NS 250 ML 250 ML IV SCH (18:59)
[2020-08-16] VITALS (13 sets, daily range): BP systolic 84–125; BP diastolic 37–100
[2020-08-16] MEDS: METRONIDAZOLE 500 MG TAB PO SCH ×2 (00:25→05:34)
[2020-08-16 04:21] LABS: ALANINE AMINOTRANSFERASE 39 IU/L (0-55); ALBUMIN 3.5 g/dL (3.5-5.0); ALBUMIN/GLOBULIN RATIO 1.3 (0.8-2.0); ALKALINE PHOSPHATASE 73 IU/L (40-150); BLOOD UREA NITROGEN 22 mg/dL (7-26); BUN/CREATININE RATIO 33 (6-25); CALCIUM 8.4 mg/dL (8.4-10.2); CARBON DIOXIDE 38 mmol/L (22-29); CHLORIDE 91 mmol/L (98-107); CREATININE, SERUM 0.66 mg/dL (0.57-1.11); EST GLOMERULAR FILTRATION RATE > 60 ML/MIN (60-); GLUCOSE 124 mg/dL (74-118); SODIUM 138 mmol/L (136-145)
[2020-08-16] MEDS: FUROSEMIDE INJ 10 MG/ML 2 ML VIAL IV SCH ×2 (05:33→18:00)
[2020-08-16] MEDS: MEROPENEM 1GM 100 ML IV SCH ×3 (05:33→22:33)
[2020-08-16] MEDS: LEVOTHYROXINE SODIUM 50 MCG TAB PO SCH (05:34)
[2020-08-16 07:39] LABS: BASOPHILS # (AUTO) 0.3 (0.0-0.1); BASOPHILS % 0.6 % (0.0-1.0); EOSINOPHILS # (AUTO) 0.1 (0.0-0.4); EOSINOPHILS % 0.1 % (0.0-6.0); HEMATOCRIT 41.6 % (34.2-44.1); HEMOGLOBIN 12.8 g/dL (12.0-16.0); LYMPHOCYTES # (AUTO) 38.6 (1.0-3.2); LYMPHOCYTES % 75.5 % (18.0-39.1); MEAN CORPUSCULAR HEMOGLOBIN 28.5 pg (28-32); MEAN CORPUSCULAR HGB CONC 30.8 g/dL (31-35); MEAN CORPUSCULAR VOLUME 92.7 fL (81-99); MONOCYTES # (AUTO) 1.6 (0.2-0.8); MONOCYTES % 3.2 % (4.4-11.3); NEUTROPHILS # (AUTO) 10.2 (2.1-6.9); NEUTROPHILS % 19.9 % (38.7-80.0); PLATELET COUNT 190 x10e3/uL (140-360); RED BLOOD COUNT 4.49 x10e6/uL (3.6-5.1); RED CELL DISTRIBUTION WIDTH 15.9 % (11.7-14.4)
[2020-08-16 09:00] LABS: LYMPHOCYTES % (MANUAL) 57 % (19-48); MONOCYTES % (MANUAL) 1 % (3.4-9.0); NEUTROPHILS % (MANUAL) 31 % (40-74); SMUDGE CELLS MODERATE
[2020-08-16 09:01] LABS: PLATELET ESTIMATE ADEQUATE; PLATELET MORPHOLOGY COMMENT NORMAL; RBC MORPHOLOGY COMMENT NORMAL
[2020-08-16 09:02] LABS: ANISOCYTOSIS SLIG; POIKILOCYTOSIS SLIGHT
[2020-08-16] MEDS: ASPIRIN 81 MG CHEW TAB PO SCH (10:35)
[2020-08-16] MEDS: METOPROLOL TARTRATE 25 MG TAB PO SCH ×2 (10:43→17:00)
[2020-08-16] MEDS: HEPARIN 25,000 UNIT 700 UNIT in DEXTROSE 5% 250ML 250 ML IV SCH ×2 (11:30→17:30)
[2020-08-16] MEDS ORDERED: SODIUM CHLORIDE 0.9% 1000ML 1,000 ML IV ONE (16:00)
[2020-08-16 16:11] LABS: BASOPHILS # (AUTO) 0.1 (0.0-0.1); BASOPHILS % 0.1 % (0.0-1.0); EOSINOPHILS % 0.1 % (0.0-6.0); HEMATOCRIT 41.3 % (34.2-44.1); HEMOGLOBIN 12.7 g/dL (12.0-16.0); LYMPHOCYTES # (AUTO) 41.3 (1.0-3.2); LYMPHOCYTES % 75.5 % (18.0-39.1); MEAN CORPUSCULAR HEMOGLOBIN 28.9 pg (28-32); MEAN CORPUSCULAR HGB CONC 30.8 g/dL (31-35); MEAN CORPUSCULAR VOLUME 94.1 fL (81-99); MONOCYTES # (AUTO) 1.7 (0.2-0.8); NEUTROPHILS # (AUTO) 11.3 (2.1-6.9); NEUTROPHILS % 20.6 % (38.7-80.0); PLATELET COUNT 207 x10e3/uL (140-360); RED BLOOD COUNT 4.39 x10e6/uL (3.6-5.1); RED CELL DISTRIBUTION WIDTH 15.7 % (11.7-14.4)
[2020-08-16 16:33] LABS: ALANINE AMINOTRANSFERASE 47 IU/L (0-55); ALBUMIN 3.5 g/dL (3.5-5.0); ALBUMIN/GLOBULIN RATIO 1.2 (0.8-2.0); ALKALINE PHOSPHATASE 72 IU/L (40-150); ANION GAP 14.2 mmol/L (8-16); BLOOD UREA NITROGEN 27 mg/dL (7-26); BUN/CREATININE RATIO 39 (6-25); CALCIUM 8.4 mg/dL (8.4-10.2); CARBON DIOXIDE 36 mmol/L (22-29); CHLORIDE 91 mmol/L (98-107); CREATINE KINASE 64 IU/L (29-168); CREATININE, SERUM 0.69 mg/dL (0.57-1.11); EST GLOMERULAR FILTRATION RATE > 60 ML/MIN (60-); GLUCOSE 134 mg/dL (74-118); POTASSIUM 4.2 mmol/L (3.5-5.1); SODIUM 137 mmol/L (136-145)
[2020-08-16 16:37] LABS: ABG HCO3 44 mmol/L (22-26); ABG PCO2 82 mmHg (35-45); ABG PH 7.34 (7.35-7.45); ABG PO2 71 mmHg (80-105); ABG TCO2 47
[2020-08-16] MEDS ORDERED: NOREPINEPHRINE 8 MG/D5W 250 ML 250 ML ONE (17:22)
[2020-08-16 17:28] LABS: LYMPHOCYTES % (MANUAL) 64 % (19-48); MONOCYTES % (MANUAL) 1 % (3.4-9.0); NEUTROPHILS % (MANUAL) 27 % (40-74); POLYCHROMASIA FEW
[2020-08-16 17:29] LABS: ANISOCYTOSIS SLIGHT; HYPOCHROMASIA SLIGHT; PLATELET ESTIMATE ADEQUATE; PLATELET MORPHOLOGY COMMENT NORMAL; SMUDGE CELLS FEW
[2020-08-16] MEDS: AZITHROMYCIN 500MG/NS 250 ML 250 ML IV SCH (19:45)
[2020-08-17] VITALS (26 sets, daily range): BP systolic 76–124; BP diastolic 42–88
[2020-08-17 05:40] LABS: BASOPHILS # (AUTO) 0.1 (0.0-0.1); BASOPHILS % 0.1 % (0.0-1.0); EOSINOPHILS # (AUTO) 0.1 (0.0-0.4); EOSINOPHILS % 0.2 % (0.0-6.0); HEMATOCRIT 36.3 % (34.2-44.1); LYMPHOCYTES # (AUTO) 31.6 (1.0-3.2); LYMPHOCYTES % 75.1 % (18.0-39.1); MEAN CORPUSCULAR HEMOGLOBIN 28.2 pg (28-32); MEAN CORPUSCULAR HGB CONC 30.3 g/dL (31-35); MEAN CORPUSCULAR VOLUME 93.1 fL (81-99); MONOCYTES # (AUTO) 1.6 (0.2-0.8); MONOCYTES % 3.8 % (4.4-11.3); NEUTROPHILS # (AUTO) 8.5 (2.1-6.9); NEUTROPHILS % 20.2 % (38.7-80.0); PLATELET COUNT 183 x10e3/uL (140-360); RED CELL DISTRIBUTION WIDTH 15.6 % (11.7-14.4)
[2020-08-17] MEDS: LEVOTHYROXINE SODIUM 50 MCG TAB PO SCH (05:50)
[2020-08-17] MEDS: FUROSEMIDE INJ 10 MG/ML 2 ML VIAL IV SCH ×2 (05:50→18:40)
[2020-08-17] MEDS: MEROPENEM 1GM 100 ML IV SCH ×3 (05:50→21:35)
[2020-08-17 06:01] LABS: ALANINE AMINOTRANSFERASE 41 IU/L (0-55); ALBUMIN 3.1 g/dL (3.5-5.0); ALBUMIN/GLOBULIN RATIO 1.3 (0.8-2.0); ALKALINE PHOSPHATASE 63 IU/L (40-150); ANION GAP 12.1 mmol/L (8-16); BLOOD UREA NITROGEN 24 mg/dL (7-26); BUN/CREATININE RATIO 39 (6-25); CALCIUM 7.9 mg/dL (8.4-10.2); CARBON DIOXIDE 36 mmol/L (22-29); CHLORIDE 95 mmol/L (98-107); CREATININE, SERUM 0.62 mg/dL (0.57-1.11); EST GLOMERULAR FILTRATION RATE > 60 ML/MIN (60-); GLUCOSE 104 mg/dL (74-118); POTASSIUM 4.1 mmol/L (3.5-5.1); SODIUM 139 mmol/L (136-145)
[2020-08-17] MEDS: MIDODRINE 2.5 MG TAB PO SCH ×3 (08:59→16:04)
[2020-08-17] MEDS: METOPROLOL TARTRATE 25 MG TAB PO SCH ×2 (08:59→17:00)
[2020-08-17] MEDS: ACETAMINOPHEN 325 MG TAB PO PRN ×2 (09:00→14:23)
[2020-08-17] MEDS: ASPIRIN 81 MG CHEW TAB PO SCH (09:00)
[2020-08-17 11:09] LABS: LYMPHOCYTES % (MANUAL) 71 % (19-48); MONOCYTES % (MANUAL) 1 % (3.4-9.0); NEUTROPHILS % (MANUAL) 28 % (40-74)
[2020-08-17 11:10] LABS: PLATELET ESTIMATE ADEQUATE
[2020-08-17 11:11] LABS: RBC MORPHOLOGY COMMENT NORMAL
[2020-08-17 11:12] LABS: SMUDGE CELLS MODERATE
[2020-08-17 11:13] LABS: PLATELET MORPHOLOGY COMMENT FEW LARGE
[2020-08-17] MEDS: AZITHROMYCIN 500MG/NS 250 ML 250 ML IV SCH (15:57)
[2020-08-17] MEDS: NOREPINEPHRINE 8 MG/D5W 250 ML 250 ML IV SCH (17:19)
[2020-08-17] MEDS ORDERED: METOPROLOL TARTRATE 25 MG TAB PO PRN (21:45)
[2020-08-18] VITALS (56 sets, daily range): BP systolic 71–119; BP diastolic 34–73
[2020-08-18 05:37] LABS: BASOPHILS # (AUTO) 0.1 (0.0-0.1); BASOPHILS % 0.2 % (0.0-1.0); EOSINOPHILS # (AUTO) 0.2 (0.0-0.4); EOSINOPHILS % 0.4 % (0.0-6.0); HEMOGLOBIN 12.4 g/dL (12.0-16.0); LYMPHOCYTES # (AUTO) 34.7 (1.0-3.2); LYMPHOCYTES % 75.7 % (18.0-39.1); MEAN CORPUSCULAR HEMOGLOBIN 28.8 pg (28-32); MEAN CORPUSCULAR HGB CONC 30.2 g/dL (31-35); MEAN CORPUSCULAR VOLUME 95.3 fL (81-99); MONOCYTES # (AUTO) 1.6 (0.2-0.8); MONOCYTES % 3.5 % (4.4-11.3); NEUTROPHILS % 19.7 % (38.7-80.0); PLATELET COUNT 183 x10e3/uL (140-360); RED CELL DISTRIBUTION WIDTH 15.8 % (11.7-14.4)
[2020-08-18] MEDS: FUROSEMIDE INJ 10 MG/ML 2 ML VIAL IV SCH ×2 (05:45→17:05)
[2020-08-18] MEDS: LEVOTHYROXINE SODIUM 50 MCG TAB PO SCH (05:45)
[2020-08-18] MEDS: MEROPENEM 1GM 100 ML IV SCH ×3 (05:45→21:49)
[2020-08-18 06:11] LABS: ALANINE AMINOTRANSFERASE 39 IU/L (0-55); ALBUMIN 3.1 g/dL (3.5-5.0); ALBUMIN/GLOBULIN RATIO 1.2 (0.8-2.0); ALKALINE PHOSPHATASE 60 IU/L (40-150); BLOOD UREA NITROGEN 18 mg/dL (7-26); BUN/CREATININE RATIO 30 (6-25); CALCIUM 7.8 mg/dL (8.4-10.2); CARBON DIOXIDE 37 mmol/L (22-29); CHLORIDE 92 mmol/L (98-107); CREATININE, SERUM 0.61 mg/dL (0.57-1.11); EST GLOMERULAR FILTRATION RATE > 60 ML/MIN (60-); GLUCOSE 109 mg/dL (74-118); SODIUM 140 mmol/L (136-145)
[2020-08-18 07:58] LABS: ANISOCYTOSIS SLIGHT; LYMPHOCYTES % (MANUAL) 75 % (19-48); MONOCYTES % (MANUAL) 1 % (3.4-9.0); NEUTROPHILS % (MANUAL) 20 % (40-74); PLATELET ESTIMATE ADEQUATE; RBC MORPHOLOGY COMMENT NORMAL
[2020-08-18 07:59] LABS: PLATELET MORPHOLOGY COMMENT FEW LARGE
[2020-08-18] MEDS: VANCOMYCIN 1GM/NS 250 ML 250 ML IV SCH (08:00)
[2020-08-18] MEDS: METOPROLOL TARTRATE 25 MG TAB PO SCH ×2 (08:02→09:00)
[2020-08-18] MEDS: ASPIRIN 81 MG CHEW TAB PO SCH (08:02)
[2020-08-18] MEDS: MIDODRINE 2.5 MG TAB PO SCH ×3 (08:03→16:07)
[2020-08-18] MEDS: HEPARIN 25,000 UNIT 700 UNIT in DEXTROSE 5% 250ML 250 ML IV SCH (11:30)
[2020-08-18] MEDS: ACETAMINOPHEN 325 MG TAB PO PRN (12:07)
[2020-08-18] MEDS: NOREPINEPHRINE 8 MG/D5W 250 ML 250 ML IV SCH (14:51)
[2020-08-18] MEDS: AZITHROMYCIN 500MG/NS 250 ML 250 ML IV SCH (15:19)
[2020-08-19] VITALS (25 sets, daily range): BP systolic 85–136; BP diastolic 43–68
[2020-08-19 05:02] LABS: BASOPHILS # (AUTO) 0.1 (0.0-0.1); BASOPHILS % 0.2 % (0.0-1.0); EOSINOPHILS # (AUTO) 0.2 (0.0-0.4); EOSINOPHILS % 0.4 % (0.0-6.0); HEMATOCRIT 39.9 % (34.2-44.1); LYMPHOCYTES # (AUTO) 39.4 (1.0-3.2); LYMPHOCYTES % 77.1 % (18.0-39.1); MEAN CORPUSCULAR HEMOGLOBIN 28.3 pg (28-32); MEAN CORPUSCULAR HGB CONC 30.1 g/dL (31-35); MEAN CORPUSCULAR VOLUME 94.1 fL (81-99); MONOCYTES # (AUTO) 1.5 (0.2-0.8); MONOCYTES % 2.9 % (4.4-11.3); NEUTROPHILS # (AUTO) 9.7 (2.1-6.9); NEUTROPHILS % 18.8 % (38.7-80.0); PLATELET COUNT 174 x10e3/uL (140-360); RED BLOOD COUNT 4.24 x10e6/uL (3.6-5.1); RED CELL DISTRIBUTION WIDTH 15.6 % (11.7-14.4)
[2020-08-19] MEDS: FUROSEMIDE INJ 10 MG/ML 2 ML VIAL IV SCH (05:28)
[2020-08-19] MEDS: MEROPENEM 1GM 100 ML IV SCH ×3 (05:28→22:10)
[2020-08-19] MEDS: LEVOTHYROXINE SODIUM 50 MCG TAB PO SCH (05:28)
[2020-08-19] MEDS: VANCOMYCIN 1GM/NS 250 ML 250 ML IV SCH (06:31)
[2020-08-19 06:47] LABS: ALANINE AMINOTRANSFERASE 38 IU/L (0-55); ALBUMIN 3.2 g/dL (3.5-5.0); ALBUMIN/GLOBULIN RATIO 1.1 (0.8-2.0); ALKALINE PHOSPHATASE 68 IU/L (40-150); BLOOD UREA NITROGEN 18 mg/dL (7-26); BUN/CREATININE RATIO 30 (6-25); CALCIUM 7.9 mg/dL (8.4-10.2); CHLORIDE 85 mmol/L (98-107); CREATININE, SERUM 0.61 mg/dL (0.57-1.11); EST GLOMERULAR FILTRATION RATE > 60 ML/MIN (60-); GLUCOSE 150 mg/dL (74-118); SODIUM 138 mmol/L (136-145)
[2020-08-19 06:49] LABS: CARBON DIOXIDE 45 mmol/L (22-29)
[2020-08-19] MEDS: HEPARIN 25,000 UNIT 700 UNIT in DEXTROSE 5% 250ML 250 ML IV SCH ×2 (06:58→23:15)
[2020-08-19 07:15] LABS: LYMPHOCYTES % (MANUAL) 75 % (19-48); NEUTROPHILS % (MANUAL) 25 % (40-74)
[2020-08-19 07:16] LABS: PLATELET ESTIMATE ADEQUATE; PLATELET MORPHOLOGY COMMENT NORMAL; RBC MORPHOLOGY COMMENT NORMAL; SMUDGE CELLS FEW
[2020-08-19] MEDS: MIDODRINE 2.5 MG TAB PO SCH ×3 (08:27→15:19)
[2020-08-19] MEDS: ASPIRIN 81 MG CHEW TAB PO SCH (08:27)
[2020-08-19] MEDS: METOPROLOL TARTRATE 25 MG TAB PO SCH (08:28)
[2020-08-19] MEDS: NOREPINEPHRINE 8 MG/D5W 250 ML 250 ML IV SCH (08:33)
[2020-08-19] MEDS: AZITHROMYCIN 500MG/NS 250 ML 250 ML IV SCH (15:19)
[2020-08-19] MEDS: ACETAZOLAMIDE 250 MG TAB PO SCH (23:20)
[2020-08-20] VITALS (26 sets, daily range): BP systolic 82–138; BP diastolic 40–72
[2020-08-20] MEDS: ACETAMINOPHEN 325 MG TAB PO PRN ×2 (04:30→10:44)
[2020-08-20] MEDS: MEROPENEM 1GM 100 ML IV SCH ×3 (05:20→21:31)
[2020-08-20] MEDS: LEVOTHYROXINE SODIUM 50 MCG TAB PO SCH (05:58)
[2020-08-20 06:03] LABS: BASOPHILS # (AUTO) 0.1 (0.0-0.1); BASOPHILS % 0.3 % (0.0-1.0); EOSINOPHILS # (AUTO) 0.2 (0.0-0.4); EOSINOPHILS % 0.5 % (0.0-6.0); HEMOGLOBIN 11.7 g/dL (12.0-16.0); LYMPHOCYTES # (AUTO) 34.5 (1.0-3.2); LYMPHOCYTES % 78.8 % (18.0-39.1); MEAN CORPUSCULAR HEMOGLOBIN 28.5 pg (28-32); MEAN CORPUSCULAR HGB CONC 29.3 g/dL (31-35); MEAN CORPUSCULAR VOLUME 97.6 fL (81-99); MONOCYTES # (AUTO) 0.8 (0.2-0.8); MONOCYTES % 1.8 % (4.4-11.3); NEUTROPHILS % 18.1 % (38.7-80.0); PLATELET COUNT 165 x10e3/uL (140-360); RED CELL DISTRIBUTION WIDTH 15.7 % (11.7-14.4)
[2020-08-20 06:21] LABS: ALANINE AMINOTRANSFERASE 31 IU/L (0-55); ALBUMIN/GLOBULIN RATIO 1.2 (0.8-2.0); ALKALINE PHOSPHATASE 71 IU/L (40-150); ANION GAP 11.8 mmol/L (8-16); BLOOD UREA NITROGEN 15 mg/dL (7-26); BUN/CREATININE RATIO 27 (6-25); CHLORIDE 87 mmol/L (98-107); CREATININE, SERUM 0.55 mg/dL (0.57-1.11); EST GLOMERULAR FILTRATION RATE > 60 ML/MIN (60-); GLUCOSE 104 mg/dL (74-118); POTASSIUM 3.8 mmol/L (3.5-5.1); SODIUM 138 mmol/L (136-145)
[2020-08-20 06:22] LABS: CARBON DIOXIDE 43 mmol/L (22-29)
[2020-08-20] MEDS: VANCOMYCIN 1GM/NS 250 ML 250 ML IV SCH (06:55)
[2020-08-20 08:48] LABS: EOSINOPHILS % (MANUAL) 2 % (0-7); LYMPHOCYTES % (MANUAL) 65 % (19-48); MONOCYTES % (MANUAL) 1 % (3.4-9.0); NEUTROPHILS % (MANUAL) 24 % (40-74)
[2020-08-20 08:49] LABS: SMUDGE CELLS MODERATE
[2020-08-20 08:50] LABS: ANISOCYTOSIS SLIGHT; HYPOCHROMASIA SLIGHT
[2020-08-20 08:51] LABS: STOMATOCYTES SLIGHT
[2020-08-20 08:52] LABS: PLATELET ESTIMATE ADEQUATE; PLATELET MORPHOLOGY COMMENT FEW LARGE; RBC MORPHOLOGY COMMENT NORMAL
[2020-08-20] MEDS: MIDODRINE 2.5 MG TAB PO SCH ×3 (09:15→16:00)
[2020-08-20] MEDS: METOPROLOL TARTRATE 25 MG TAB PO SCH (09:16)
[2020-08-20] MEDS: ASPIRIN 81 MG CHEW TAB PO SCH (09:16)
[2020-08-20] MEDS: ACETAZOLAMIDE 250 MG TAB PO SCH ×2 (09:16→21:00)
[2020-08-20] MEDS ORDERED: SODIUM CHLORIDE 0.9% 250ML 250 ML IV ONE (16:45)
[2020-08-20] MEDS ORDERED: NOREPINEPHRINE 8 MG/D5W 250 ML 250 ML ONE (16:49)
[2020-08-20] MEDS: NOREPINEPHRINE INJ 4MG/4ML 8 MG in DEXTROSE 5% 250ML 250 ML IV SCH (17:00)
[2020-08-20] MEDS: AZITHROMYCIN 500MG/NS 250 ML 250 ML IV SCH (18:14)
[2020-08-20] MEDS: SODIUM CHLORIDE 0.9% 1000ML 1,000 ML IV SCH (19:00)
[2020-08-20] MEDS ORDERED: IOPAMIDOL 370 MG/ML 200 ML INFUS..BTL INJ ONE (19:27)
[2020-08-20] MEDS ORDERED: SODIUM CHLORIDE 0.9% 100 ML ONE (19:28)
[2020-08-21] VITALS (23 sets, daily range): BP systolic 90–128; BP diastolic 42–82
[2020-08-21] MEDS: SODIUM CHLORIDE 0.9% 1000ML 1,000 ML IV SCH (03:00)
[2020-08-21] MEDS: ACETAMINOPHEN 325 MG TAB PO PRN (04:05)
[2020-08-21 05:15] LABS: BASOPHILS # (AUTO) 0.1 (0.0-0.1); BASOPHILS % 0.1 % (0.0-1.0); EOSINOPHILS # (AUTO) 0.2 (0.0-0.4); EOSINOPHILS % 0.3 % (0.0-6.0); HEMATOCRIT 38.8 % (34.2-44.1); HEMOGLOBIN 11.3 g/dL (12.0-16.0); LYMPHOCYTES # (AUTO) 39.4 (1.0-3.2); LYMPHOCYTES % 80.2 % (18.0-39.1); MEAN CORPUSCULAR HEMOGLOBIN 28.5 pg (28-32); MEAN CORPUSCULAR HGB CONC 29.1 g/dL (31-35); MEAN CORPUSCULAR VOLUME 97.7 fL (81-99); MONOCYTES # (AUTO) 1.2 (0.2-0.8); MONOCYTES % 2.5 % (4.4-11.3); NEUTROPHILS % 16.3 % (38.7-80.0); PLATELET COUNT 176 x10e3/uL (140-360); RED BLOOD COUNT 3.97 x10e6/uL (3.6-5.1); RED CELL DISTRIBUTION WIDTH 15.6 % (11.7-14.4)
[2020-08-21 05:38] LABS: ALANINE AMINOTRANSFERASE 36 IU/L (0-55); ALBUMIN 2.8 g/dL (3.5-5.0); ALKALINE PHOSPHATASE 74 IU/L (40-150); BLOOD UREA NITROGEN 15 mg/dL (7-26); BUN/CREATININE RATIO 28 (6-25); CHLORIDE 92 mmol/L (98-107); CREATININE, SERUM 0.53 mg/dL (0.57-1.11); EST GLOMERULAR FILTRATION RATE > 60 ML/MIN (60-); GLUCOSE 126 mg/dL (74-118); SODIUM 138 mmol/L (136-145)
[2020-08-21 05:41] LABS: CARBON DIOXIDE 43 mmol/L (22-29)
[2020-08-21] MEDS: MEROPENEM 1GM 100 ML IV SCH ×3 (05:43→22:00)
[2020-08-21] MEDS: LEVOTHYROXINE SODIUM 50 MCG TAB PO SCH (05:43)
[2020-08-21] MEDS: VANCOMYCIN 1GM/NS 250 ML 250 ML IV SCH (06:17)
[2020-08-21 07:23] LABS: LYMPHOCYTES % (MANUAL) 81 % (19-48); MONOCYTES % (MANUAL) 1 % (3.4-9.0); NEUTROPHILS % (MANUAL) 16 % (40-74)
[2020-08-21 07:24] LABS: ANISOCYTOSIS SLIGHT; PLATELET ESTIMATE ADEQUATE; PLATELET MORPHOLOGY COMMENT FEW LARGE; RBC MORPHOLOGY COMMENT NORMAL
[2020-08-21] MEDS ORDERED: FUROSEMIDE INJ 10 MG/ML 4 ML VIAL IV ONE ×2 (08:30→17:00)
[2020-08-21] MEDS ORDERED: METOPROLOL TARTRATE INJ 1 MG/ML VIAL IV PRN (08:45)
[2020-08-21] MEDS: ACETAZOLAMIDE 250 MG TAB PO SCH ×2 (09:00→20:52)
[2020-08-21] MEDS: ASPIRIN 81 MG CHEW TAB PO SCH (09:00)
[2020-08-21] MEDS ORDERED: HEPARIN 25,000 UNIT 700 UNIT in DEXTROSE 5% 250ML 250 ML IV SCH (11:00)
[2020-08-21] MEDS: MIDODRINE HCL 5 MG TABLET PO SCH ×2 (12:00→16:00)
[2020-08-21] MEDS ORDERED: AMIODARONE HCL 150 MG/100 ML BAG IV ONE (14:00)
[2020-08-21] MEDS ORDERED: AMIODARONE HCL 900 MG in DEXTROSE 5% 500ML 500 ML IV SCH (14:00)
[2020-08-21] MEDS: NOREPINEPHRINE INJ 4MG/4ML 8 MG in DEXTROSE 5% 250ML 250 ML IV SCH (14:24)
[2020-08-21] MEDS: HEPARIN 25,000 UNIT 700 UNIT in DEXTROSE 5% 250ML 250 ML IV SCH (15:15)
[2020-08-21] MEDS ORDERED: HALOPERIDOL LACTATE 5 MG/ML VIAL IV ONE (16:00)
[2020-08-21] MEDS: AZITHROMYCIN 500MG/NS 250 ML 250 ML IV SCH (16:25)
[2020-08-21] MEDS ORDERED: APIXABAN 5 MG TABLET PO SCH (17:00)
[2020-08-22] VITALS (23 sets, daily range): BP systolic 81–142; BP diastolic 33–92
[2020-08-22 03:56] LABS: BASOPHILS # (AUTO) 0.1 (0.0-0.1); BASOPHILS % 0.1 % (0.0-1.0); EOSINOPHILS % 0.1 % (0.0-6.0); HEMATOCRIT 40.3 % (34.2-44.1); HEMOGLOBIN 11.8 g/dL (12.0-16.0); LYMPHOCYTES # (AUTO) 44.7 (1.0-3.2); LYMPHOCYTES % 79.5 % (18.0-39.1); MEAN CORPUSCULAR HEMOGLOBIN 28.8 pg (28-32); MEAN CORPUSCULAR HGB CONC 29.3 g/dL (31-35); MEAN CORPUSCULAR VOLUME 98.3 fL (81-99); MONOCYTES # (AUTO) 0.7 (0.2-0.8); MONOCYTES % 1.2 % (4.4-11.3); NEUTROPHILS # (AUTO) 10.5 (2.1-6.9); NEUTROPHILS % 18.6 % (38.7-80.0); PLATELET COUNT 210 x10e3/uL (140-360); RED CELL DISTRIBUTION WIDTH 15.6 % (11.7-14.4)
[2020-08-22 04:11] LABS: ANISOCYTOSIS SLIGHT; LYMPHOCYTES % (MANUAL) 74 % (19-48); MONOCYTES % (MANUAL) 1 % (3.4-9.0); NEUTROPHILS % (MANUAL) 21 % (40-74); PLATELET ESTIMATE ADEQUATE; PLATELET MORPHOLOGY COMMENT FEW LARGE; RBC MORPHOLOGY COMMENT NORMAL
[2020-08-22 04:14] LABS: ALANINE AMINOTRANSFERASE 35 IU/L (0-55); ALBUMIN 3.1 g/dL (3.5-5.0); ALBUMIN/GLOBULIN RATIO 1.1 (0.8-2.0); ALKALINE PHOSPHATASE 78 IU/L (40-150); ANION GAP 11.3 mmol/L (8-16); BLOOD UREA NITROGEN 18 mg/dL (7-26); BUN/CREATININE RATIO 28 (6-25); CALCIUM 8.1 mg/dL (8.4-10.2); CHLORIDE 89 mmol/L (98-107); CREATININE, SERUM 0.65 mg/dL (0.57-1.11); EST GLOMERULAR FILTRATION RATE > 60 ML/MIN (60-); GLUCOSE 148 mg/dL (74-118); POTASSIUM 4.3 mmol/L (3.5-5.1); SODIUM 139 mmol/L (136-145)
[2020-08-22 04:16] LABS: CARBON DIOXIDE 43 mmol/L (22-29)
[2020-08-22] MEDS: LEVOTHYROXINE SODIUM 50 MCG TAB PO SCH (05:54)
[2020-08-22] MEDS: MEROPENEM 1GM 100 ML IV SCH ×3 (06:00→22:00)
[2020-08-22] MEDS: VANCOMYCIN 1GM/NS 250 ML 250 ML IV SCH (07:05)
[2020-08-22] MEDS: MIDODRINE HCL 5 MG TABLET PO SCH ×3 (08:00→16:45)
[2020-08-22] MEDS ORDERED: NOREPINEPHRINE 8 MG/D5W 250 ML 250 ML ONE (13:44)
[2020-08-22] MEDS: ACETAZOLAMIDE 250 MG TAB PO SCH ×2 (15:13→22:00)
[2020-08-22] MEDS: RISPERIDONE 0.5 MG TAB PO SCH ×2 (15:13→22:00)
[2020-08-22] MEDS: ASPIRIN 81 MG CHEW TAB PO SCH (15:13)
[2020-08-22] MEDS: NOREPINEPHRINE INJ 4MG/4ML 8 MG in DEXTROSE 5% 250ML 250 ML IV SCH ×2 (15:18→23:05)
[2020-08-22] MEDS ORDERED: HEPARIN 25,000 UNIT DRIP IV ONE (16:38)
[2020-08-22] MEDS: AZITHROMYCIN 500MG/NS 250 ML 250 ML IV SCH (16:45)
[2020-08-22] MEDS: HEPARIN 25,000 UNIT 700 UNIT in DEXTROSE 5% 250ML 250 ML IV SCH ×2 (16:45→23:35)
[2020-08-22] MEDS: ACETAMINOPHEN 325 MG TAB PO PRN (16:49)
[2020-08-23] VITALS (25 sets, daily range): BP systolic 99–136; BP diastolic 39–83
[2020-08-23 05:01] LABS: BASOPHILS # (AUTO) 0.1 (0.0-0.1); BASOPHILS % 0.1 % (0.0-1.0); EOSINOPHILS # (AUTO) 0.3 (0.0-0.4); EOSINOPHILS % 0.6 % (0.0-6.0); HEMOGLOBIN 9.8 g/dL (12.0-16.0); LYMPHOCYTES # (AUTO) 34.1 (1.0-3.2); LYMPHOCYTES % 80.6 % (18.0-39.1); MEAN CORPUSCULAR HEMOGLOBIN 28.6 pg (28-32); MEAN CORPUSCULAR HGB CONC 29.7 g/dL (31-35); MEAN CORPUSCULAR VOLUME 96.2 fL (81-99); MONOCYTES # (AUTO) 0.5 (0.2-0.8); MONOCYTES % 1.2 % (4.4-11.3); NEUTROPHILS # (AUTO) 7.2 (2.1-6.9); NEUTROPHILS % 17.1 % (38.7-80.0); PLATELET COUNT 140 x10e3/uL (140-360); RED BLOOD COUNT 3.43 x10e6/uL (3.6-5.1); RED CELL DISTRIBUTION WIDTH 15.9 % (11.7-14.4)
[2020-08-23 05:26] LABS: ALANINE AMINOTRANSFERASE 24 IU/L (0-55); ALBUMIN 2.7 g/dL (3.5-5.0); ALBUMIN/GLOBULIN RATIO 1.1 (0.8-2.0); ALKALINE PHOSPHATASE 65 IU/L (40-150); ANION GAP 8.9 mmol/L (8-16); BLOOD UREA NITROGEN 22 mg/dL (7-26); BUN/CREATININE RATIO 37 (6-25); CHLORIDE 90 mmol/L (98-107); EST GLOMERULAR FILTRATION RATE > 60 ML/MIN (60-); GLUCOSE 125 mg/dL (74-118); POTASSIUM 3.9 mmol/L (3.5-5.1); SODIUM 137 mmol/L (136-145)
[2020-08-23] MEDS: MEROPENEM 1GM 100 ML IV SCH ×3 (05:39→20:59)
[2020-08-23] MEDS: LEVOTHYROXINE SODIUM 50 MCG TAB PO SCH (05:39)
[2020-08-23 05:40] LABS: CARBON DIOXIDE 42 mmol/L (22-29)
[2020-08-23] MEDS: VANCOMYCIN 1GM/NS 250 ML 250 ML IV SCH (06:51)
[2020-08-23] MEDS: ASPIRIN 81 MG CHEW TAB PO SCH (08:16)
[2020-08-23] MEDS: AMIODARONE HCL 200 MG TAB PO SCH (08:16)
[2020-08-23] MEDS: RISPERIDONE 0.5 MG TAB PO SCH ×2 (08:16→20:16)
[2020-08-23] MEDS: ACETAZOLAMIDE 250 MG TAB PO SCH ×2 (08:16→20:16)
[2020-08-23] MEDS: MIDODRINE HCL 5 MG TABLET PO SCH ×3 (08:16→16:00)
[2020-08-23 09:27] LABS: BAND NEUTROPHILS % (MANUAL) 2 %; LYMPHOCYTES % (MANUAL) 77 % (19-48); MONOCYTES % (MANUAL) 2 % (3.4-9.0); NEUTROPHILS % (MANUAL) 19 % (40-74)
[2020-08-23] MEDS: ACETAMINOPHEN 325 MG TAB PO PRN (20:17)
[2020-08-24] VITALS (25 sets, daily range): BP systolic 100–138; BP diastolic 43–119
[2020-08-24] MEDS: MEROPENEM 1GM 100 ML IV SCH (06:14)
[2020-08-24] MEDS: VANCOMYCIN 1GM/NS 250 ML 250 ML IV SCH (06:15)
[2020-08-24] MEDS: LEVOTHYROXINE SODIUM 50 MCG TAB PO SCH (06:40)
[2020-08-24 06:53] LABS: BASOPHILS # (AUTO) 0.1 (0.0-0.1); BASOPHILS % 0.4 % (0.0-1.0); EOSINOPHILS # (AUTO) 0.2 (0.0-0.4); EOSINOPHILS % 0.6 % (0.0-6.0); HEMATOCRIT 30.2 % (34.2-44.1); HEMOGLOBIN 8.8 g/dL (12.0-16.0); LYMPHOCYTES # (AUTO) 30.8 (1.0-3.2); LYMPHOCYTES % 83.6 % (18.0-39.1); MEAN CORPUSCULAR HEMOGLOBIN 28.9 pg (28-32); MEAN CORPUSCULAR HGB CONC 29.1 g/dL (31-35); MONOCYTES # (AUTO) 0.5 (0.2-0.8); MONOCYTES % 1.2 % (4.4-11.3); NEUTROPHILS # (AUTO) 5.1 (2.1-6.9); NEUTROPHILS % 13.8 % (38.7-80.0); PLATELET COUNT 119 x10e3/uL (140-360); RED BLOOD COUNT 3.05 x10e6/uL (3.6-5.1); RED CELL DISTRIBUTION WIDTH 16.3 % (11.7-14.4)
[2020-08-24 07:22] LABS: ALANINE AMINOTRANSFERASE 23 IU/L (0-55); ALBUMIN 2.6 g/dL (3.5-5.0); ALBUMIN/GLOBULIN RATIO 1.1 (0.8-2.0); ALKALINE PHOSPHATASE 58 IU/L (40-150); ANION GAP 9.1 mmol/L (8-16); BLOOD UREA NITROGEN 19 mg/dL (7-26); BUN/CREATININE RATIO 35 (6-25); CHLORIDE 93 mmol/L (98-107); CREATININE, SERUM 0.55 mg/dL (0.57-1.11); EST GLOMERULAR FILTRATION RATE > 60 ML/MIN (60-); GLUCOSE 111 mg/dL (74-118); POTASSIUM 4.1 mmol/L (3.5-5.1); SODIUM 139 mmol/L (136-145)
[2020-08-24 07:29] LABS: CARBON DIOXIDE 41 mmol/L (22-29)
[2020-08-24] MEDS: ASPIRIN 81 MG CHEW TAB PO SCH (08:30)
[2020-08-24] MEDS: AMIODARONE HCL 200 MG TAB PO SCH (08:30)
[2020-08-24] MEDS: ACETAZOLAMIDE 250 MG TAB PO SCH ×2 (08:30→20:14)
[2020-08-24] MEDS: MIDODRINE HCL 5 MG TABLET PO SCH ×3 (08:30→17:00)
[2020-08-24] MEDS: RISPERIDONE 0.5 MG TAB PO SCH ×2 (09:00→20:14)
[2020-08-24 09:14] LABS: EOSINOPHILS % (MANUAL) 1 % (0-7); LYMPHOCYTES % (MANUAL) 82 % (19-48); MYELOCYTES % (MANUAL) 1 % (0-0); NEUTROPHILS % (MANUAL) 16 % (40-74)
[2020-08-24 09:15] LABS: PLATELET ESTIMATE SLIGHTLY DECREASED; PLATELET MORPHOLOGY COMMENT FEW LARGE; RBC MORPHOLOGY COMMENT ABNORMAL; STOMATOCYTES SLIGHT
[2020-08-24] MEDS: HEPARIN 25,000 UNIT 700 UNIT in DEXTROSE 5% 250ML 250 ML IV SCH (09:54)
[2020-08-24] MEDS: NOREPINEPHRINE INJ 4MG/4ML 8 MG in DEXTROSE 5% 250ML 250 ML IV SCH (16:30)
[2020-08-24] MEDS: ACETAMINOPHEN 325 MG TAB PO PRN (20:14)
[2020-08-25] VITALS (16 sets, daily range): BP systolic 98–149; BP diastolic 41–69
[2020-08-25] MEDS: HEPARIN 25,000 UNIT 700 UNIT in DEXTROSE 5% 250ML 250 ML IV SCH (05:15)
[2020-08-25] MEDS: LEVOTHYROXINE SODIUM 50 MCG TAB PO SCH (06:00)
[2020-08-25] MEDS: VANCOMYCIN 1GM/NS 250 ML 250 ML IV SCH (06:15)
[2020-08-25 06:42] LABS: BASOPHILS # (AUTO) 0.1 (0.0-0.1); BASOPHILS % 0.1 % (0.0-1.0); EOSINOPHILS # (AUTO) 0.2 (0.0-0.4); EOSINOPHILS % 0.5 % (0.0-6.0); HEMATOCRIT 28.8 % (34.2-44.1); HEMOGLOBIN 8.4 g/dL (12.0-16.0); LYMPHOCYTES # (AUTO) 31.1 (1.0-3.2); LYMPHOCYTES % 76.9 % (18.0-39.1); MEAN CORPUSCULAR HEMOGLOBIN 29.1 pg (28-32); MEAN CORPUSCULAR HGB CONC 29.2 g/dL (31-35); MEAN CORPUSCULAR VOLUME 99.7 fL (81-99); MONOCYTES # (AUTO) 0.4 (0.2-0.8); MONOCYTES % 1.1 % (4.4-11.3); NEUTROPHILS # (AUTO) 8.5 (2.1-6.9); NEUTROPHILS % 20.9 % (38.7-80.0); PLATELET COUNT 117 x10e3/uL (140-360); RED BLOOD COUNT 2.89 x10e6/uL (3.6-5.1); RED CELL DISTRIBUTION WIDTH 16.2 % (11.7-14.4)
[2020-08-25 07:04] LABS: ALANINE AMINOTRANSFERASE 24 IU/L (0-55); ALBUMIN 2.5 g/dL (3.5-5.0); ALKALINE PHOSPHATASE 56 IU/L (40-150); ANION GAP 8.3 mmol/L (8-16); BLOOD UREA NITROGEN 25 mg/dL (7-26); BUN/CREATININE RATIO 47 (6-25); CALCIUM 8.3 mg/dL (8.4-10.2); CHLORIDE 95 mmol/L (98-107); CREATININE, SERUM 0.53 mg/dL (0.57-1.11); EST GLOMERULAR FILTRATION RATE > 60 ML/MIN (60-); GLUCOSE 109 mg/dL (74-118); POTASSIUM 4.3 mmol/L (3.5-5.1); SODIUM 140 mmol/L (136-145)
[2020-08-25 07:06] LABS: CARBON DIOXIDE 41 mmol/L (22-29)
[2020-08-25] MEDS: AMIODARONE HCL 200 MG TAB PO SCH (09:04)
[2020-08-25] MEDS: ACETAZOLAMIDE 250 MG TAB PO SCH ×2 (09:04→20:07)
[2020-08-25] MEDS: ASPIRIN 81 MG CHEW TAB PO SCH (09:04)
[2020-08-25] MEDS: MIDODRINE HCL 5 MG TABLET PO SCH ×3 (09:04→16:36)
[2020-08-25 09:17] LABS: EOSINOPHILS % (MANUAL) 3 % (0-7); LYMPHOCYTES % (MANUAL) 72 % (19-48); MONOCYTES % (MANUAL) 1 % (3.4-9.0); NEUTROPHILS % (MANUAL) 24 % (40-74)
[2020-08-25 09:18] LABS: ANISOCYTOSIS SLIGHT; PLATELET ESTIMATE SLIGHTLY DECREASED; SMUDGE CELLS FEW
[2020-08-25 09:19] LABS: PLATELET MORPHOLOGY COMMENT FEW LARGE; RBC MORPHOLOGY COMMENT NORMAL; STOMATOCYTES SLIGHT
[2020-08-25] MEDS: NOREPINEPHRINE INJ 4MG/4ML 8 MG in DEXTROSE 5% 250ML 250 ML IV SCH (16:30)
[2020-08-25] MEDS: RISPERIDONE 0.5 MG TAB PO SCH (20:07)
[2020-08-25] MEDS: ACETAMINOPHEN 325 MG TAB PO PRN (20:07)
[2020-08-26] VITALS (7 sets, daily range): BP systolic 117–189; BP diastolic 39–73
[2020-08-26] MEDS: ACETAMINOPHEN 325 MG TAB PO PRN (06:02)
[2020-08-26] MEDS: LEVOTHYROXINE SODIUM 50 MCG TAB PO SCH (06:02)
[2020-08-26] MEDS: VANCOMYCIN 1GM/NS 250 ML 250 ML IV SCH (06:44)
[2020-08-26 07:17] LABS: BASOPHILS # (AUTO) 0.1 (0.0-0.1); BASOPHILS % 0.2 % (0.0-1.0); EOSINOPHILS # (AUTO) 0.1 (0.0-0.4); EOSINOPHILS % 0.1 % (0.0-6.0); HEMOGLOBIN 8.6 g/dL (12.0-16.0); LYMPHOCYTES # (AUTO) 35.7 (1.0-3.2); LYMPHOCYTES % 80.7 % (18.0-39.1); MEAN CORPUSCULAR HGB CONC 28.7 g/dL (31-35); MONOCYTES # (AUTO) 0.4 (0.2-0.8); NEUTROPHILS # (AUTO) 7.7 (2.1-6.9); NEUTROPHILS % 17.5 % (38.7-80.0); PLATELET COUNT 139 x10e3/uL (140-360); RED BLOOD COUNT 2.97 x10e6/uL (3.6-5.1); RED CELL DISTRIBUTION WIDTH 16.8 % (11.7-14.4)
[2020-08-26 07:44] LABS: EOSINOPHILS % (MANUAL) 1 % (0-7); LYMPHOCYTES % (MANUAL) 76 % (19-48); MONOCYTES % (MANUAL) 2 % (3.4-9.0); NEUTROPHILS % (MANUAL) 21 % (40-74)
[2020-08-26 07:45] LABS: HYPOCHROMASIA SLIGHT; PLATELET ESTIMATE SLIGHTLY DECREASED; PLATELET MORPHOLOGY COMMENT NORMAL; RBC MORPHOLOGY COMMENT NORMAL
[2020-08-26 07:46] LABS: SMUDGE CELLS FEW
[2020-08-26] MEDS: MIDODRINE HCL 5 MG TABLET PO SCH ×3 (09:02→17:21)
[2020-08-26] MEDS: AMIODARONE HCL 200 MG TAB PO SCH (09:02)
[2020-08-26] MEDS: ASPIRIN 81 MG CHEW TAB PO SCH (09:02)
[2020-08-26] MEDS: ACETAZOLAMIDE 250 MG TAB PO SCH ×2 (09:03→21:14)
[2020-08-26] MEDS ORDERED: HEPARIN 25,000 UNIT 700 UNIT in DEXTROSE 5% 250ML 250 ML IV SCH (09:30)
[2020-08-26] MEDS: NOREPINEPHRINE INJ 4MG/4ML 8 MG in DEXTROSE 5% 250ML 250 ML IV SCH (16:30)
[2020-08-26] MEDS: APIXABAN 5 MG TABLET PO SCH (17:19)
[2020-08-26] MEDS: RISPERIDONE 0.5 MG TAB PO SCH (21:14)
[2020-08-27] VITALS (39 sets, daily range): BP systolic 71–135; BP diastolic 33–98
[2020-08-27] MEDS: VANCOMYCIN 1GM/NS 250 ML 250 ML IV SCH (05:48)
[2020-08-27] MEDS: LEVOTHYROXINE SODIUM 50 MCG TAB PO SCH (05:48)
[2020-08-27] MEDS: ACETAZOLAMIDE 250 MG TAB PO SCH ×2 (08:10→21:00)
[2020-08-27] MEDS: ASPIRIN 81 MG CHEW TAB PO SCH (08:10)
[2020-08-27] MEDS: APIXABAN 5 MG TABLET PO SCH ×2 (08:10→16:02)
[2020-08-27] MEDS: AMIODARONE HCL 200 MG TAB PO SCH (08:10)
[2020-08-27] MEDS: MIDODRINE HCL 5 MG TABLET PO SCH ×3 (08:10→16:00)
[2020-08-27] MEDS ORDERED: NOREPINEPHRINE 8 MG/D5W 250 ML 250 ML ONE ×2 (08:53→22:05)
[2020-08-27] MEDS: NOREPINEPHRINE INJ 4MG/4ML 8 MG in DEXTROSE 5% 250ML 250 ML IV SCH (09:04)
[2020-08-27] MEDS: ALPRAZOLAM 0.25 MG TAB PO PRN (14:46)
[2020-08-27] MEDS ORDERED: SODIUM CHLORIDE 0.9% INJ 500 ML BAG ONE (17:56)
[2020-08-27] MEDS ORDERED: EPINEPHRINE HCL SYRINGE ONE (17:56)
[2020-08-27] MEDS ORDERED: ATROPINE SULFATE 0.1 MG/ML 10ML SYR ONE (17:56)
[2020-08-27] MEDS: RISPERIDONE 0.5 MG TAB PO SCH (21:00)
[2020-08-28] VITALS (11 sets, daily range): BP systolic 78–103; BP diastolic 42–58
[2020-08-28] MEDS: ALPRAZOLAM 0.25 MG TAB PO PRN (02:17)
[2020-08-28] MEDS: LEVOTHYROXINE SODIUM 50 MCG TAB PO SCH (06:00)
[2020-08-28] MEDS: MIDODRINE HCL 5 MG TABLET PO SCH ×3 (08:00→12:35)
[2020-08-28] MEDS: ASPIRIN 81 MG CHEW TAB PO SCH (08:16)
[2020-08-28] MEDS: APIXABAN 5 MG TABLET PO SCH (08:17)
[2020-08-28] MEDS: ACETAZOLAMIDE 250 MG TAB PO SCH (08:17)
[2020-08-28] MEDS: AMIODARONE HCL 200 MG TAB PO SCH (08:17)
[2020-08-28] MEDS: MORPHINE SULFATE INJ 2 MG/ML SYR IV PRN ×2 (10:30→12:42)
[2020-09-20] MEDS ORDERED: HEPARIN 25,000 UNIT 700 UNIT in DEXTROSE 5% 250ML 250 ML IV SCH (15:07)
== END 2020-08-28 14:40 | disposition expired | DRG 871 ==
LOC: ER 13:24 → ERHOLD 15:40 → MED/SURG3 19:54 → ICU 08-16 17:08 → IMCU 08-25 12:29 → ICU 08-27 13:05
PROVIDERS: ADMIT Internal Medicine; ATTEND Internal Medicine
PROC: 0W9B3ZZ Drainage of Left Pleural Cavity, Percutaneous Approach (ICD-10-PCS; 2020-08-14)
PROC: 02HV33Z Insertion of Infusion Device into Superior Vena Cava, Percutaneous Approach (ICD-10-PCS; principal; 2020-08-16)
PROC: 3E043XZ Introduction of Vasopressor into Central Vein, Percutaneous Approach (ICD-10-PCS; 2020-08-17)
PROC: 5A09357 Assistance with Respiratory Ventilation, Less than 24 Consecutive Hours, Continuous Positive Airway Pressure (ICD-10-PCS; 2020-08-17)
DX: A41.9 Sepsis, unspecified organism (principal); J69.0 Pneumonitis due to inhalation of food and vomit; G93.41 Metabolic encephalopathy; J96.20 Acute and chronic respiratory failure, unspecified whether with hypoxia or hypercapnia; I50.33 Acute on chronic diastolic (congestive) heart failure; R57.9 Shock, unspecified; J90 Pleural effusion, not elsewhere classified; C91.10 Chronic lymphocytic leukemia of B-cell type not having achieved remission; E87.4 Mixed disorder of acid-base balance; E44.0 Moderate protein-calorie malnutrition; I48.91 Unspecified atrial fibrillation; I05.0 Rheumatic mitral stenosis; Z68.21 Body mass index [BMI] 21.0-21.9, adult; Z66 Do not resuscitate; K21.9 Gastro-esophageal reflux disease without esophagitis; Z88.0 Allergy status to penicillin; Z88.8 Allergy status to other drugs, medicaments and biological substances; R01.1 Cardiac murmur, unspecified; E03.9 Hypothyroidism, unspecified; F41.9 Anxiety disorder, unspecified; I11.0 Hypertensive heart disease with heart failure; D64.9 Anemia, unspecified; E77.8 Other disorders of glycoprotein metabolism; E88.09 Other disorders of plasma-protein metabolism, not elsewhere classified; Z86.73 Personal history of transient ischemic attack (TIA), and cerebral infarction without residual deficits; Z20.822 Contact with and (suspected) exposure to COVID-19
CPT/HCPCS: 32555; 36415; 36569; 36600; 70450; 71045; 71260; 74230; 74470; 76604; 80053; 80202; 81001; 82550; 82553; 82805; 82948; 83605; 83615; 83735; 83880; 84157; 84484; 85025; 85610; 85730; 87040; 87070; 87205; 89051; 92950; 93005; 93306; 94660; 97139; 99251; 99285; J0171; J0456; J1630; J1644; J1650; J1940; J2270; J3370; J7030; J7040; J7050; J7060; Q9967; U0002